=== PATIENT | female | born 1940 | race Caucasian/White ===

== ENCOUNTER 2017-09-09 11:16 | Emergency (ER) | payer MEDICARE, OTHER ==
[~2017-09-09] VITALS: Ht 167.6 cm; Wt 102.1 kg
[~2017-09-09 11:16] MED LIST: AMLODIPINE BES2.5 MG PO; ATORVASTATIN CA20 MG PO; CALCIUM 600 +1 EAC8 PO; GLUCOSAMINE &1 EAC1 PO; HYDROCHLOROTH12.5 M1 PO; JANTOVEN2.5 MG PO; LEVOTHYROXINE112 MCG PO; LOSARTAN POTAS100 MG PO; MELOXICAM7.5 MG PO; METFORMIN HCL500 MG PO; OMEPRAZOLE40 MG PO; PANTOPRAZOLE SO40 MG PO; PROTONIX40 M2; Z.0.CRESTOR10 MG PO; Z.0.ESTRADIOL1 MG PO; Z.0.VESICARE5 MG PO; Z.2.LOSARTAN-HCTZ1 E PO; [UNRECOGNIZED DRUG - OTHER] PO
[2017-09-09] MEDS ORDERED: ECOTRIN81 MG PO (11:36)
[2017-09-09] MEDS ORDERED: VITAMIN B-650 MG PO (11:36)
[2017-09-09] MEDS ORDERED: FOLIC ACID1 MG PO (11:36)
[2017-09-09 12:15] LABS: BASOPHILS % 0.5 % (0.0-1.0); EOSINOPHILS # (AUTO) 0.1 (0.0-0.4); EOSINOPHILS % 1.5 % (0.0-6.0); HEMATOCRIT 41.7 % (34.2-44.1); HEMOGLOBIN 14.4 g/dL (12.0-16.0); LYMPHOCYTES # (AUTO) 1.3 (1.0-3.2); LYMPHOCYTES % 20.1 % (18.0-39.1); MEAN CORPUSCULAR HEMOGLOBIN 31.4 pg (28-32); MEAN CORPUSCULAR HGB CONC 34.5 g/dL (31-35); MONOCYTES # (AUTO) 0.7 (0.2-0.8); MONOCYTES % 10.5 % (4.4-11.3); NEUTROPHILS # (AUTO) 4.4 (2.1-6.9); NEUTROPHILS % 67.1 % (38.7-80.0); PLATELET COUNT 286 x10e3/uL (140-360); RED BLOOD COUNT 4.58 x10e6/uL (3.6-5.1); RED CELL DISTRIBUTION WIDTH 12.4 % (11.7-14.4)
[2017-09-09 12:31] LABS: INR 0.97; PROTHROMBIN TIME 13.4 seconds (11.9-14.5)
[2017-09-09 12:32] LABS: PARTIAL THROMBOPLASTIN TIME 26.4 seconds (23.8-35.5)
[2017-09-09 12:40] LABS: ALBUMIN 3.8 g/dL (3.5-5.0); ANION GAP 12.7 mmol/L (8-16); CREATININE, SERUM 1.25 mg/dL (0.57-1.11); POTASSIUM 3.7 mmol/L (3.5-5.1)
[2017-09-09] MEDS ORDERED: SODIUM CHLORIDE 0.9% 1000ML 1,000 ML IV STA (12:46)
[2017-09-09 12:51] LABS: CREATINE KINASE MB 1.2 ng/mL (0.00-5.00); TROPONIN I 0.007 ng/mL (0-0.300)
[2017-09-09] MEDS ORDERED: IOPAMIDOL 370 MG/ML 200 ML INFUS..BTL INJ ONE (14:06)
[2017-09-09] MEDS ORDERED: SODIUM CHLORIDE 0.9% 50ML 50 ML ONE (14:06)
--- NOTE | 2017-09-09 14:30 | Diagnostic Imaging Report ---
PROCEDURE: CT scan of the chest WITH intravenous contrast, using PE protocol. TECHNIQUE: The chest was scanned utilizing a multidetector helical scanner from the lung apex through the level of the adrenal glands after the IV administration of 70 cc of Isovue 370 with special emphasis on the pulmonary arteries. Coronal and sagittal multiplanar reformations were obtained. COMPARISON: CT, CT ABDOMEN/PELVIS W, 11/30/2012, 19:59. CT, CT ABDOMEN/PELVIS W, 07/08/2015, 10:25. [facility], CT, CT CHEST W, 11/02/2015, 10:02. INDICATIONS: WEAKNESS, PULMONARY EMBOLISM FINDINGS: Lines/tubes: None. Lungs and Airways: No filling defects in the main, right or left pulmonary arteries to their segmental level to suggest pulmonary embolism. Unchanged atelectatic changes in the media of aspect of the right lower and left lower lobe secondary to large hiatal hernia (series 3, images 77-82), as well as associated multiple linear opacities in bilateral lower lobes and lingula, consistent with scarring. Stable 4 mm calcified granuloma in the left lower lobe (series 3, image 60). No nodules, masses, or consolidation. Pleura: No effusion, or pneumothorax. Heart and mediastinum: The thyroid is unremarkable. Stable mild cardiomegaly. No pericardial effusion. The aorta is non-aneurysmal. Main pulmonary artery is normal in size, measuring approximately 2.3 cm. Lymph nodes: No mediastinal, hilar, or axillary adenopathy. Abdomen: Limited contrast-enhanced views of the upper abdomen show no abnormality within the visualized spleen, pancreas, or kidneys. Stable 1.4 and 1.3 cm hypodense lesions in hepatic segment VII. This since 2012, which are presumed benign and likely represent small hemangiomas. Large hiatal hernia, which contains the stomach fundus and body. The adrenal glands are normal. Bones: No acute bony abnormalities. Degenerative disc changes in the thoracic spine. The IMPRESSION: 1. No CT evidence of pulmonary embolism. 2. Stable bilateral lower lobe atelectatic changes secondary to large hiatal hernia, containing the stomach fundus and body, and stable bilateral lower lobe linear scarring. Oscar Martines M.D. Dictated by: Oscar Martines M.D. on 09/09/2017 at 14:38 Electronically approved by: Oscar Martines M.D. on 09/09/2017 at 14:38
== END 2017-09-09 16:03 | disposition home or self-care (01) ==
LOC: ER 11:16
DX: R06.00 Dyspnea, unspecified (principal); I26.99 Other pulmonary embolism without acute cor pulmonale; I10 Essential (primary) hypertension; Z86.718 Personal history of other venous thrombosis and embolism
CPT/HCPCS: 36415; 71260; 80053; 82550; 82553; 84484; 85025; 85610; 85730; 93005; 99284; J7030; Q9967

== ENCOUNTER 2017-12-04 13:29 | Emergency (ER) | payer MEDICARE, OTHER ==
[~2017-12-04] VITALS: Ht 167.6 cm; Wt 102.1 kg
[~2017-12-04 13:29] MED LIST changes: +ECOTRIN81 MG PO; +FOLIC ACID1 MG PO; +VITAMIN B-650 MG PO
--- OUTSIDE RECORDS SUMMARY | 2017-12-04 13:34 | XMS REPORT ---
[facility] Address Unknown Phone Unavailable Care Team Providers Care [place] Attendant Name Role Phone MIGUEL PETERSON Unavailable Unavailable KUSH MARINO Unavailable Unavailable Problems This patient has no known problems. Allergies, Adverse Reactions, Alerts This patient has no known allergies or adverse reactions. Medications This patient has no known medications. Results Test Description Test Time Test Comments Text Results Atomic Results Result Comments CT CHEST W [place] [address] Patient Name: MANAS VANEGAS MR #: [id number] : 1940 Age/Sex: 76/F Req #: [id number] Adm Physician: Ordered by: MIGUEL PETERSON MD Report #: [id number] Location: ER Room/Bed: Procedure: [id number] CT/CT CHEST W Exam Date: 09/09/17 Exam Time: 1345 REPORT STATUS: Signed PROCEDURE: CT scan of the chest WITH intravenous contrast, using PE protocol. TECHNIQUE: The chest was scanned utilizing a multidetector helical scanner from the lung apex through the level of the adrenal glands after the IV administration of 70 cc of Isovue 370 with special emphasis on the pulmonary arteries. Coronal and sagittal multiplanar reformations were obtained. COMPARISON: CT, CT ABDOMEN/PELVIS W, 11/30/2012, 19:59. CT, CT ABDOMEN/PELVIS W, 07/08/2015, 10: 25. Patients [facility], CT, CT CHEST W, 11/02/2015, 10:02. INDICATIONS: WEAKNESS, PULMONARY EMBOLISM FINDINGS: Lines/tubes: None. Lungs and Airways: No filling defects in the main, right or left pulmonary arteries to their segmental level to suggest pulmonary embolism. Unchanged atelectatic changes in the media of aspect of the right lower and left lower lobe secondary to large hiatal hernia (series 3, images 77-82), as well as associated multiple linear opacities in bilateral lower lobes and lingula, consistent with scarring. Stable 4 mm calcified granuloma in the left lower lobe (series 3, image 60). No nodules, masses, or consolidation. Pleura: No effusion, or pneumothorax. Heart and mediastinum: The thyroid is unremarkable. Stable mild cardiomegaly. No pericardial effusion. The aorta is non-aneurysmal. Main pulmonary artery is normal in size, measuring approximately 2.3 cm. Lymph nodes: No mediastinal, hilar, or axillary adenopathy. Abdomen: Limited contrast- enhanced views of the upper abdomen show no abnormality within the visualized spleen, pancreas, or kidneys. Stable 1.4 and 1.3 cm hypodense lesions in hepatic segment VII. This since 2013, which are presumed benign and likely represent small hemangiomas. Large hiatal hernia, which contains the stomach fundus and body. The adrenal glands are normal. Bones: No acute bony abnormalities. Degenerative disc changes in the thoracic spine. The IMPRESSION: 1. No CT evidence of pulmonary embolism. 2. Stable bilateral lower lobe atelectatic changes secondary to large hiatal hernia, containing the stomach fundus and body, and stable bilateral lower lobe linear scarring. Katina Martines M.D. Dictated by : Katina Martines M.D. on 09/09/2017 at 14:38 Electronically approved by: Katina Martines M.D. on 09/09/2017 at 14:38 Dictated By: KATINA MARTINES MD 1438 Transcribed By: KAREN on 09/09/17 1438 COPY TO: MIGUEL PETERSON MD MRI SPINE LUMBAR WO [place] [address] Patient Name: MANAS VANEGAS MR #: [id number] : 1940 Age/Sex: 76/F Req # : [id number] [facility] Physician: Ordered by: KUSH MARINO MD Report #: [id number] Location: MRI Room/Bed: Procedure: [id number] MRI/MRI SPINE LUMBAR WO Exam Date: 07/07/17 Exam Time: 1720 REPORT STATUS: Signed Exam: Lumbar spine MRI without IV contrast History: Back and leg pain. Comparison studies: Included lumbar spine from abdomen pelvis CT of 06/25/2016. Technique: Sagittal and axial T2 , sagittal T1 and IR, axial spin density oblique. Intravenous contrast: None Findings: Number of lumbar vertebral bodies: 5. Alignment: Normal lordosis. No scoliosis. Soft tissues: No T2 hyperintense inflammatory changes. Paraspinal muscles: Mild to moderate symmetric atrophy. Lower thoracic cord: Normal in signal and morphology. The tip of the conus is at T12-L1. Cauda equina: No masses. No arachnoiditis. Vertebrae: Incidental few scattered T1 hyperintense vertebral body hemangiomas. No acute compression fracture, infection or other neoplasm. Chronic superior L5 endplate compression fracture with up to 40% height loss centrally. No retropulsion. Degenerative changes: L1-L2: Mild facet arthrosis. Patent canal and foramina. L2-L3: Mildly degenerated disc with mild loss of disc height and loss of T2 disc signal. Minimal grade 1 degenerative anterolisthesis with associated uncovered disc/disc bulge, thickened ligamenta flava and facet arthrosis result in mild canal stenosis. No significant foraminal stenosis. L3-L4: Mild loss of T2 disc signal. Minimal grade 1 anterolisthesis of L3 on L4 with associated uncovered disc/ disc bulge, thickened ligamentum flavum and moderate facet arthrosis result in moderate canal stenosis and mild bilateral foraminal stenosis. L4-L5: Loss of T2 disc signal. Symmetric disc bulge with small left foraminal annular fissure, thickened ligamenta flava and moderate facet arthrosis with mild canal stenosis and mild bilateral foraminal stenosis L5-S1: Loss of T2 disc signal. Bilateral facet arthrosis without significant canal or foraminal stenosis. IMPRESSION: 1. Chronic superior L5 endplate compression fracture. 2. Multilevel degenerative changes most notable for moderate canal stenosis at L3-L4, mild canal stenosis at L2-L3 and L4-L5 and facet arthrosis from L1 to S1. No nerve root impingement. Signed by: Dr. Arnel Schmitt M.D. on 07/08/2017 10:53 AM Dictated By: ARNEL SCHMITT MD 1053 Transcribed By: RICCARDO on 07/08/171052 COPY TO: KUSH MARINO MD
[2017-12-04] MEDS ORDERED: MORPHINE SULFATE 2 MG/ML SYR IV STA (14:45)
[2017-12-04] MEDS ORDERED: ONDANSETRON HCL INJ 2 MG/ML VIAL IV STA (14:45)
[2017-12-04] MEDS ORDERED: NIFEDIPINE 10 MG CAP PO STA (14:45)
[2017-12-04 14:58] LABS: BASOPHILS % 0.5 % (0.0-1.0); EOSINOPHILS % 0.5 % (0.0-6.0); HEMATOCRIT 42.3 % (34.2-44.1); HEMOGLOBIN 14.8 g/dL (12.0-16.0); LYMPHOCYTES # (AUTO) 0.7 (1.0-3.2); LYMPHOCYTES % 11.6 % (18.0-39.1); MEAN CORPUSCULAR HEMOGLOBIN 31.1 pg (28-32); MEAN CORPUSCULAR VOLUME 88.9 fL (81-99); MONOCYTES # (AUTO) 0.3 (0.2-0.8); MONOCYTES % 4.3 % (4.4-11.3); NEUTROPHILS # (AUTO) 4.8 (2.1-6.9); NEUTROPHILS % 82.6 % (38.7-80.0); PLATELET COUNT 192 x10e3/uL (140-360); RED BLOOD COUNT 4.76 x10e6/uL (3.6-5.1); RED CELL DISTRIBUTION WIDTH 11.9 % (11.7-14.4)
[2017-12-04 15:09] LABS: ANION GAP 16.4 mmol/L (8-16); BLOOD UREA NITROGEN 14 mg/dL (7-26); BUN/CREATININE RATIO 15 (6-25); CALCIUM 9.8 mg/dL (8.4-10.2); CARBON DIOXIDE 27 mmol/L (22-29); CHLORIDE 99 mmol/L (98-107); CREATINE KINASE 62 IU/L (29-168); CREATININE, SERUM 0.91 mg/dL (0.57-1.11); EST GLOMERULAR FILTRATION RATE 60 ML/MIN (60-); GLUCOSE 139 mg/dL (74-118); POTASSIUM 4.4 mmol/L (3.5-5.1); SODIUM 138 mmol/L (136-145)
--- NOTE | 2017-12-04 16:31 | Diagnostic Imaging Report ---
History:Headaches Comparison studies:None Technique: Axial images were obtained from the skull base to the vertex. Coronal and sagittal images reconstructed from the axial data. Intravenous contrast: None Findings: Scalp/skull: No abnormalities. Extra-axial spaces: No masses. No fluid collections. Brain sulci: Mildly prominent. Ventricles: Mild compensatory dilatation. No hydrocephalus. Parenchyma: Few hypodensities in the supratentorial white matter are small vessel ischemic changes. No masses, hemorrhage, acute or chronic cortical vascular insults. Sellar/suprasellar region: No abnormalities. Craniocervical junction: Patent foramen magnum. No Chiari one malformation. Incidental findings: Atherosclerotic calcifications in the carotid siphons . Impression: No acute abnormalities. Chronic findings: 1. Mild generalized volume loss. 2. Mild supratentorial white matter small vessel ischemic changes. Signed by: DR Seth Olson M.D. on 12/04/2017 4:28 PM
--- NOTE | 2017-12-04 16:36 | Diagnostic Imaging Report ---
EXAMINATION: CHEST SINGLE (PORTABLE) 12/04/2017 2:45 PM COMPARISON: 11/02/2015. INDICATION: Chest pain. DISCUSSION: LINES: None. LUNGS: Bibasilar subsegmental. Mild prominence of the pulmonary vasculature bilaterally. PLEURA: No pleural effusion or pneumothorax. HEART AND MEDIASTINUM: The cardiac silhouette is enlarged. BONES AND SOFT TISSUES: No acute osseous lesion. Large hiatal hernia. IMPRESSION: 1. Bibasilar subsegmental atelectasis. 2. Large hiatal hernia. Signed by: Dr. Shannon Marx M.D. on 12/04/2017 4:32 PM
== END 2017-12-04 17:29 | disposition home or self-care (01) ==
LOC: ER 13:29
DX: R51 Headache (principal); I10 Essential (primary) hypertension
CPT/HCPCS: 36415; 70450; 71045; 80048; 82550; 82553; 84484; 85025; 93005; 99284; J2270; J2405

== ENCOUNTER → 2019-01-18 | Outpatient (CLI) | payer MEDICARE, OTHER ==
--- NOTE | 2019-01-18 11:21 | Diagnostic Imaging Report ---
EXAMINATION: PA and lateral views of the chest. INDICATION: Shortness of breath COMPARISON: Chest radiograph 06/19/2018. DISCUSSION: The lungs are well-inflated. No evidence of pneumonia or pulmonary edema. No evidence of pleural effusion or pneumothorax. Mild patchy left basilar opacity, likely atelectasis. Stable cardiomediastinal contour with large hiatal hernia. No acute osseous abnormality. IMPRESSION: No acute radiographic abnormality. Large hiatal hernia. Signed by: Dr. Emiliano Osman MD on 01/18/2019 11:18 AM
== END ==
LOC: RAD 10:50
DX: R06.02 Shortness of breath (principal)
CPT/HCPCS: 71046

== ENCOUNTER 2019-02-06 03:34 | Emergency (ER) | payer MEDICARE, OTHER ==
[~2019-02-06] VITALS: Ht 167.6 cm; Wt 102.1 kg
--- OUTSIDE RECORDS SUMMARY | 2019-02-06 03:38 | XMS REPORT | Summary of Care ---
Author Author [facility] Address Unknown Phone Unavailable Encounter [facility] Encntr_mat(FIN) [id number] Date(s): 01/10/17 - 02/08/17 [facility] Final: Stiffness of left hip, not elsewhere classified Final: Difficulty in walking, not elsewhere classified Discharge Disposition: Home or Self Care Attending Physician: Giuseppe Clemente MD Vital Signs No data available for this section Problem List Condition Effective Dates Status Health Status Informant DM (diabetes Active mellitus)(Confirmed) HTN Active (hypertension)(Confi rmed) Hypothyroid(Confirme Active d) Allergies, Adverse Reactions, Alerts Substance Reaction Severity Status NKDA Active Medications No data available for this section Results No data available for this section Immunizations Given and Recorded Vaccine Date Status Refusal Reason diphtheria/pertussis, acel/tetanus adult 01/26/14 Given Procedures Procedure Date Related Diagnosis Body Site section Cholecystectomy Hysterectomy Thyroidectomy Social History No data available for this section Assessment and Plan No data available for this section
--- OUTSIDE RECORDS SUMMARY | 2019-02-06 03:38 | XMS REPORT | Summary of Care ---
Author Author [facility] Address Unknown Phone Unavailable Encounter [facility] Casey(FIN) [id number] Date(s): 09/30/17 - 10/29/17 [facility] Encounter Diagnosis Pain in right knee (Final) - 11/03/17 Stiffness of right knee, not elsewhere classified (Final) - Muscle weakness (generalized) (Final) - Anterior soft tissue impingement (Final) - Other lack of coordination (Final) - Other abnormalities of gait and mobility (Final) - Presence of right artificial knee joint (Final) - Aftercare following joint replacement surgery (Final) - Other abnormalities of gait and mobility (Final) - Unsteadiness on feet (Final) - Discharge Disposition: Home or Self Care Attending Physician: Giuseppe Clemente MD Vital Signs No data available for this section Problem List Condition Effective Dates Status Health Status Informant DM (diabetes Active mellitus)(Confirmed) HTN Active (hypertension)(Confi rmed) Hypothyroid(Confirme Active d) Osteoarthritis(Confi Active rmed)1 1right knee Allergies, Adverse Reactions, Alerts Substance Reaction Severity Status NKDA Active Medications No data available for this section Results No data available for this section Immunizations Given and Recorded Vaccine Date Status Refusal Reason diphtheria/pertussis, acel/tetanus adult 01/26/14 Given Procedures Procedure Date Related Diagnosis Body Site Status Cataract surgery1 Completed section Completed Cholecystectomy Completed Hysterectomy Completed Thyroidectomy Completed 1both eyes 2013 Social History Social History Type Response Smoking Status Never smoker; Exposure to Tobacco Smoke None; Cigarette Smoking Last 365 Days No; Reg Smoking Cessation Counseling No entered on: 08/25/17 Assessment and Plan No data available for this section
--- OUTSIDE RECORDS SUMMARY | 2019-02-06 03:38 | XMS REPORT | Summary of Care ---
Author Author [facility] Organization [facility] Address Unknown Phone Unavailable Encounter BENJI Peña(FIN) [id number] Date(s): 08/09/17 - 08/09/17 [facility] Outpatient Imaging [address] [phone] Discharge Disposition: Home or Self Care Attending [...] Procedures Procedure Date Related Diagnosis Body Site Cataract surgery1 section Cholecystectomy Hysterectomy Thyroidectomy 1both eyes 2013 Social History Social History Type Response Smoking Status Never smoker; Exposure to Tobacco Smoke None; Cigarette Smoking Last 365 Days No; Reg Smoking Cessation Counseling No Assessment and Plan No data available for this section
--- OUTSIDE RECORDS SUMMARY | 2019-02-06 03:38 | XMS REPORT | Continuity of Care Document ---
Author Author Frank nadine [facility] Interface Address Unknown Phone Unavailable Problems Problem Status Onset Date Classification Date Reported Comments Source Pain in right knee 01/07/2018 04/07/2018 [facility] RT KNEE Active 09/26/2017 [facility] RT KNEE M17.11 OA, Z96.651 RT. KNEE REPL Active 09/21/2017 [facility] RIGHT KNEE PARTIAL REPLACEMENT Active 08/25/2017 [facility] M17.11, M25.561, [id number] RIGHT KNEE Active 07/22/2017 [facility] LEFT HIP PAIN Active 12/13/2016 [facility] BILATERAL KNEE Active 12/13/2016 [facility] Final: Muscle weakness 06/13/2016 [facility] Final: Stiffness of unspecified knee, not elsewhere classified 06/13/2016 [facility] Final: Difficulty in walking, not elsewhere classified 06/13/2016 [facility] DM (<span ID="[id number]">Confirmed</span>) Active Problem 04/07/2018 [facility] HTN (<span ID="[id number]">Confirmed</span>) Active Problem 04/07/2018 [facility] Hypothyroid Active Problem 04/07/2018 [facility] Other abnormalities of gait and mobility 04/07/2018 [facility] Stiffness of right knee, not elsewhere classified 04/07/2018 [facility] Weakness 04/07/2018 [facility] Unsteadiness on feet 04/07/2018 [facility] Osteoarthritis<sup>1</sup> Active Problem 04/07/2018 right knee [facility] Final: Stiffness of left hip, not elsewhere classified 02/11/2017 [facility] Final: Difficulty in walking, not elsewhere classified 02/11/2017 [facility] Muscle weakness 02/04/2018 [facility] Anterior soft tissue impingement 02/04/2018 [facility] Other lack of coordination 02/04/2018 [facility] Presence of right artificial knee joint 02/04/2018 [facility] Aftercare following joint replacement surgery 02/04/2018 [facility] KAILASH KNEE Active [facility] KAILASH KNEE PAIN Active [facility] UNILATERAL PRIMARY OSTEOARTHRITIS, LEFT Active [facility] UNILATERAL PRIMARY OSTEOARTHRITIS, RIGHT Active [facility] PAIN IN UNSPECIFIED KNEE Active [facility] MUSCLE WEAKNESS (GENERALIZED) Active [facility] STIFFNESS OF UNSPECIFIED KNEE, NOT ELSEW Active [facility] DIFFICULTY IN WALKING, NOT ELSEWHERE CLA Active [facility] UNILATERAL PRIMARY OSTEOARTHRITIS, LEFT Active [facility] PAIN IN LEFT HIP Active [facility] STIFFNESS OF LEFT HIP, NOT ELSEWHERE CLA Active [facility] PAIN IN RIGHT KNEE Active [facility] STIFFNESS OF RIGHT KNEE, NOT ELSEWHERE C Active [facility] UNSTEADINESS ON FEET Active [facility] OTHER ABNORMALITIES OF GAIT AND MOBILITY Active [facility] WEAKNESS Active [facility] Medications Medication Details Route Status Patient Instructions Ordering Provider Order Date Source Ketorolac 15 mg, Route: IVP, Q6H, Dosing Weight 102.727, kg, Start date: 08/25/17 12:00:00 SKID WORKER, Duration: 6 doses or times, Stop date: 08/26/17 18:00:00 SKID WORKER Inactive 08/25/2017 [facility] Vancomycin 1,000 mg, Route: IVPB, Drug form: INJ, Q12H, Dosing Weight 102.727, kg, Time Critical Medication, Start date: 08/25/17 9:00:00 SKID WORKER, Duration: 1 doses or times, Stop date: 08/25/17 9:00:00 SKID WORKER, [facility] to adjust dose for renal function, ABX Indication... Inactive 08/25/2017 [facility] propofol (ANES) Route: IV, Drug form: INJ, ONCE, Stop date: 08/25/17 8:04:00 SKID WORKER Inactive 08/25/2017 [facility] ondansetron (ANES) Route: IV, Drug form: INJ, ONCE, Stop date: 08/25/17 8:04:00 SKID WORKER Inactive 08/25/2017 [facility] ePHEDrine (ANES) Route: IV, Drug form: INJ, ONCE, Stop date: 08/25/17 8:04:00 SKID WORKER Inactive 08/25/2017 [facility] Cefazolin 1 gm, Route: IVPB, Drug form: INJ, Q8H, Dosing Weight 102.727, kg, Start date: 08/25/17 8:00:00 SKID WORKER, Duration: 1 doses or times, Stop date: 08/25/17 8:00:00 SKID WORKER, ABX Indication: Surgical Prophylaxis Inactive 08/25/2017 [facility] propofol (ANES) 10 mg Route: IV, Drug form: INJ, Start date: 08/25/17 7:47:00 SKID WORKER, Stop date: 08/25/17 8:47:00 SKID WORKER Inactive 08/25/2017 [facility] famotidine (ANES) Route: IV, Drug form: INJ, ONCE, Stop date: 08/25/17 7:39:00 SKID WORKER Inactive 08/25/2017 [facility] lidocaine (ANES) Route: IV, Drug form: INJ, ONCE, Stop date: 08/25/17 7:34:00 SKID WORKER Inactive 08/25/2017 [facility] fentaNYL (ANES) Route: IV, Drug form: INJ, ONCE, Stop date: 08/25/17 7:34:00 SKID WORKER Inactive 08/25/2017 [facility] midazolam (ANES) Route: IV, Drug form: SOLN, ONCE, Stop date: 08/25/17 7:34:00 SKID WORKER Inactive 08/25/2017 [facility] propofol (ANES) Route: IV, Drug form: INJ, ONCE, Stop date: 08/25/17 7:34:00 SKID WORKER Inactive 08/25/2017 [facility] ceFAZolin (ANES) Route: IV, Drug form: INJ, ONCE, Stop date: 08/25/17 7:29:00 SKID WORKER Inactive 08/25/2017 [facility] dexamethasone (ANES) Route: IV, Drug form: INJ, ONCE, Stop date: 08/25/17 7:29:00 SKID WORKER Inactive 08/25/2017 [facility] acetaminophen (ANES) Route: IV, Drug form: INJ, ONCE, Stop date: 08/25/17 7:29:00 SKID WORKER Inactive 08/25/2017 [facility] Ondansetron 4 mg, Route: IVP, ONCE, Dosing Weight 102.727, kg, PRN Nausea & Vomiting, Start date: 08/25/17 7:07:00 SKID WORKER Inactive 08/25/2017 [facility] Promethazine 6.25 mg, Route: IVPB, ONCE, Dosing Weight 102.727, kg, PRN Nausea & Vomiting, Start date: 08/25/17 7:07:00 SKID WORKER Inactive 08/25/2017 [facility] Fentanyl 25 microgram, Route: IVP, Q5Min, Dosing Weight 102.727, kg, PRN Pain Score 4-6, Priority: Routine, Start date: 08/25/17 7:07:00 SKID WORKER, Duration: 4 doses or times, Stop date: Limited # of times Inactive 08/25/2017 [facility] Calcium Chloride 0.0014 MEQ/ML / Potassium Chloride 0.004 MEQ/ML / Sodium Chloride 0.103 MEQ/ML / Sodium Lactate 0.028 MEQ/ML Injectable Solution 1,000 mL, Rate: 125 ml/hr, Infuse over: 8 hr, Route: IV, Dosing Weight 102.727 kg, Total Volume: 1,000, Start date: 08/25/17 7:07:00 SKID WORKER, Duration: 30 day, Stop date: 09/24/17 7:06:00 SKID WORKER, 2.25, m2 Inactive 08/25/2017 [facility] Hydromorphone 0.5 mg, Route: IVP, Q5Min, Dosing Weight 102.727, kg, PRN Pain Score 7-10, Start date: 08/25/17 7:07:00 SKID WORKER, Duration: 4 doses or times, Stop date: Limited # of times Inactive 08/25/2017 [facility] Flumazenil 0.2 mg, Route: IVP, PRN, Dosing Weight 102.727, kg, PRN Benzodiazepine Reversal, Initial dose, Start date: 08/25/17 7:07:00 SKID WORKER, Duration: 30 day, Stop date: 09/24/17 7:06:00 SKID WORKER Inactive 08/25/2017 [facility] Naloxone 0.4 mg, Route: IVP, Q2MIN, Dosing Weight 102.727, kg, PRN Narcotic Reversal, Start date: 08/25/17 7:07:00 SKID WORKER, Duration: 8 doses or times, Stop date: Limited # of times Inactive 08/25/2017 [facility] Metoprolol 1 mg, Route: IVP, Q5Min, Dosing Weight 102.727, kg, PRN Other -See Comment, Start date: 08/25/17 7:07:00 SKID WORKER, Duration: 5 doses or times, Stop date: Limited # of times Inactive 08/25/2017 [facility] Hydralazine 10 mg, Route: IVP, Q20Min, Dosing Weight 102.727, kg, PRN Elevated BP, Start date: 08/25/17 7:07:00 SKID WORKER, Duration: 2 doses or times, Stop date: Limited # of times Inactive 08/25/2017 [facility] Clonidine Hydrochloride 0.1 MG Oral Tablet 0.1 mg, 1 tab, Route: PO, Drug form: TAB, QID, Dosing Weight 102.727, kg, PRN Hypertension, Start date: 08/25/17 6:46:00 SKID WORKER, Duration: 30 day, Stop date: 09/24/17 6:45:00 CSTNotes: (Same As: Catapres) Inactive 08/25/2017 [facility] Diphenhydramine 12.5 mg, 5 mL, Route: PO, Drug form: LIQ, Q6H, Dosing Weight 102.727, kg, PRN Itching, Start date: 08/25/17 6:46:00 SKID WORKER, Duration: 30 day, Stop date: 09/24/17 6:45:00 CSTNotes: (Same as: Benadryl) Inactive 08/25/2017 [facility] Hydromorphone 0.3 mg, Route: IVP, Q3H, Dosing Weight 102.727, kg, PRN Pain Score 4-6, Start date: 08/25/17 6:46:00 SKID WORKER, Duration: 30 day, Stop date: 09/24/17 6:45:00 SKID WORKER Inactive 08/25/2017 [facility] Ondansetron 4 mg, 2 mL, Route: IVP, Drug form: INJ, Q6H, Dosing Weight 102.727, kg, PRN Nausea & Vomiting, Start date: 08/25/17 6:46:00 SKID WORKER, Duration: 30 day, Stop date: 09/24/17 6:45:00 CSTNotes: (Same as: Zofran) MEDICATION WASTE Product Size: 4 mg Product Wasted: ___ mg Inactive 08/25/2017 [facility] Promethazine 12.5 mg, 50 mL, Route: IVPB, Drug form: SOLN, Q4H, Dosing Weight 102.727, kg, PRN Nausea & Vomiting, Start date: 08/25/17 6:46:00 SKID WORKER, Duration: 30 day, Stop date: 09/24/17 6:45:00 SKID WORKER Inactive 08/25/2017 [facility] Lactated Ringers IV 1,000 mL 1,000 mL, Rate: 125 ml/hr, Infuse over: 8 hr, Route: IV, Dosing Weight 102.727 kg, Total Volume: 1,000, Start date: 08/25/17 6:46:00 SKID WORKER, Duration: 30 day, Stop date: 09/24/17 6:45:00 SKID WORKER, 2.25, m2 Inactive 08/25/2017 [facility] Acetaminophen 325 MG / Hydrocodone Bitartrate 10 MG Oral Tablet 1 tab, Route: PO, Drug Form: TAB, Dosing Weight 102.727, kg, Q4H, PRN Pain Score 4-6, Start date: 08/25/17 6:46:00 SKID WORKER, Duration: 30 day, Stop date: 09/24/17 6:45:00 CSTNotes: Do not exceed 4gm/day of acetaminophen. (Same as: [place] 325/10) Inactive 08/25/2017 [facility] Lactated Ringers Injection IV (ANES) 1000 mL Route: IV, Total Volume: 1,000, Start date: 08/25/17 6:30:00 SKID WORKER, Stop date: 08/25/17 7:30:00 SKID WORKER Inactive 08/25/2017 [facility] scopolamine 1 patch, Route: TOP, Drug form: ERFILM, ONCALL, Start date: 08/25/17 6:00:00 SKID WORKER, Duration: 1 doses or times, Stop date: 08/25/17 23:00:00 CSTNotes: Change patch every 72 hours (Same as: Transderm- Scop) Inactive 08/25/2017 [facility] dexamethasone 4 mg, 1 mL, Route: IV, Drug form: INJ, ONCALL, Start date: 08/25/17 6:00:00 SKID WORKER, Duration: 1 doses or times, Stop date: 08/25/17 23:00:00 CSTNotes: Concentration: 4mg/ml Inactive 08/25/2017 [facility] Zofran 4 mg, 1 tab, Route: PO, Drug form: TAB, ONCALL, Start date: 08/25/17 6:00:00 SKID WORKER, Duration: 1 doses or times, Stop date: 08/25/17 23:00:00 CSTNotes: (Same as: Zofran) Inactive 08/25/2017 [facility] Ofirmev 1,000 mg, 100 mL, Route: IV, Drug form: INJ, ONCALL, Start date: 08/25/17 6:00:00 SKID WORKER, Duration: 1 doses or times, Stop date: 08/25/17 23:00:00 CSTNotes: Infuse over 15 minutes Do not exceed 4gm/day of acetaminophen MEDICATION WASTE Product Size: 1000 mg Product Wasted: ___ mg Inactive 08/25/2017 [facility] CeleBREX 400 mg, 2 cap, Route: PO, Drug form: CAP, ONCALL, Start date: 08/25/17 6:00:00 SKID WORKER, Duration: 1 doses or times, Stop date: 08/25/17 23:00:00 CSTNotes: NSAID. Please check indication. Not for seizure. (Same As: CeleBREX) Inactive 08/25/2017 [facility] ceFAZolin + sterile water 20 mL 2 gm, Route: IV, ONCALL, Start date: 08/25/17 6:00:00 SKID WORKER, Duration: 1 doses or times, Stop date: 08/25/17 23:00:00 SKID WORKER, ABX Indication: Surgical ProphylaxisNotes: (Same As: Ancef, Kefzol) MEDICATION WASTE Product Size: 1000 mg Product Wasted: ___ mg Inactive 08/25/2017 [facility] levothyroxine 112 mcg (0.112 mg) oral tablet 112 microgram=1 tab, PO, Daily, 0 Refill(s) Active 08/09/2017 [facility] Folic Acid 1 MG Oral Tablet 1 mg=1 tab, PO, Daily, 0 Refill(s) Active 08/09/2017 [facility] atorvastatin 20 mg oral tablet 20 mg=1 tab, PO, Daily, 0 Refill(s) Active 08/09/2017 [facility] aspirin 81 mg tablet, enteric coated 81 mg=1 tab, PO, Daily, # 90 tab, 3 Refill(s) No Longer Active 08/09/2017 [facility] PARoxetine 20 mg oral tablet 20 mg=1 tab, PO, Daily, 0 Refill(s) Active 08/09/2017 [facility] omeprazole 40 mg oral delayed release capsule 40 mg=1 cap, PO, Daily, 0 Refill(s) Active 08/09/2017 [facility] losartan 50 mg oral tablet 50 mg=1 tab, PO, Daily, 0 Refill(s) Active 08/09/2017 [facility] Allergies, Adverse Reactions, Alerts Substance Category Reaction Severity Reaction type Status Date Reported Comments Source Immunizations Immunization Date Given Site Status Last Updated Comments Source diphtheria/pertussis, acel/tetanus adult 01/26/2014 Right Deltoid completed [facility] Results Order Name Results Value Reference Range Date Interpretation Comments Source BLOOD BANK RESULTS Antibody Scrn Negative (08/25/17 4:59 AM) 08/25/2017 [facility] BLOOD BANK RESULTS ABO/Rh A POS 08/25/2017 [facility] Knee 1-2 Views unilateral DX Knee 1-2 Views unilateral DX EXAMINATION: Right knee AP and lateral HISTORY: Arthritis - post op; right knee arthritis FINDINGS: Frontal and lateral portable views of the right knee are performed and compared to CT dated 08/09/2017. There has been interval placement of a medial compartment, unicompartmental right knee arthroplasty which is in near anatomic alignment. There is no periprosthetic fracture. Intra-articular and soft tissue gas is in keeping with the patient's postoperative status. IMPRESSION: 1. New medial compartment, unicompartmental right knee arthroplasty in near anatomic alignment with postoperative changes. 08/25/2017 - - Read by: Janes Diaz MD Dictated Date/time: 08/25/17 10:19 Electronically Signed by: Janes Diaz MD 08/25/17 10:21 FINAL REPORT [facility] BACTERIAL - SEROLOGY MRSA by PCR Negative (08/09/17 8:43 AM) 08/09/2017 [facility] CHEM PANEL Albumin Lvl 3.3 g/dL 3.5 - 5.0 08/09/2017 [facility] ELECTROLYTES CO2 27 meq/L 24 - 32 08/09/2017 [facility] ELECTROLYTES Calcium Lvl 8.7 mg/dL 8.5 - 10.5 08/09/2017 [facility] ELECTROLYTES Potassium Lvl 4.2 meq/L 3.5 - 5.1 08/09/2017 [facility] ELECTROLYTES Chloride Lvl 109 meq/L 95 - 109 08/09/2017 [facility] ELECTROLYTES Sodium Lvl 143 meq/L 135 - 145 08/09/2017 [facility] ELECTROLYTES Glucose Lvl 109 mg/dL 70 - 99 08/09/2017 [facility] ELECTROLYTES eGFR 43 mL/min/1.73m2 08/09/2017 Result Comment: The eGFR is calculated using the CKD-EPI formula. In most young, healthy individuals the eGFR will be >90 mL/min/1.73m2. The eGFR declines with age. An eGFR of 60-89 may be normal in some populations, particularly the elderly, for whom the CKD-EPI formula has not been extensively validated. Use of the eGFR is not recommended in the following populations: Individuals with unstable creatinine concentrations, including patients and those with serious co-morbid conditions. Patients with extremes in muscle mass or diet. The data above are obtained from the National Kidney Disease Education Program (NKDEP) which additionally recommends that when the eGFR is used in patients with extremes of body mass index for purposes of drug dosing, the eGFR should be multiplied by the estimated BMI. [facility] ELECTROLYTES Creatinine Lvl 1.20 mg/dL 0.50 - 1.40 08/09/2017 [facility] ELECTROLYTES BUN 14 mg/dL 7 - 22 08/09/2017 [facility] ELECTROLYTES AGAP 11.2 meq/L 10.0 - 20.0 08/09/2017 [facility] HEMATOLOGY MCV 92.7 fL 80.0 - 98.0 08/09/2017 [facility] HEMATOLOGY MCHC 34.7 g/dL 32.0 - 36.0 08/09/2017 [facility] HEMATOLOGY RDW 13.0 % 11.5 - 14.5 08/09/2017 [facility] HEMATOLOGY Platelet 178 K/CMM 133 - 450 08/09/2017 [facility] HEMATOLOGY MPV 7.8 fL 7.4 - 10.4 08/09/2017 [facility] HEMATOLOGY Hct 39.2 % 36.0 - 48.0 08/09/2017 [facility] HEMATOLOGY MCH 32.2 pg 27.0 - 31.0 08/09/2017 [facility] HEMATOLOGY WBC 7.7 K/CMM 3.7 - 10.4 08/09/2017 [facility] HEMATOLOGY RBC 4.23 M/CMM 4.20 - 5.40 08/09/2017 [facility] HEMATOLOGY Hgb 13.6 g/dL 12.0 - 16.0 08/09/2017 [facility] HEMATOLOGY Basophils 0.8 % 0.0 - 1.0 08/09/2017 [facility] HEMATOLOGY Monocytes 8.3 % 2.0 - 12.0 08/09/2017 [facility] HEMATOLOGY Segs 69.8 % 45.0 - 75.0 08/09/2017 [facility] HEMATOLOGY Eosinophils 2.9 % 0.0 - 4.0 08/09/2017 [facility] HEMATOLOGY Lymphocytes 18.2 % 20.0 - 40.0 08/09/2017 [facility] HEMATOLOGY Basophils # 0.1 K/CMM 0.0 - 0.2 08/09/2017 [facility] HEMATOLOGY Eosinophils # 0.2 K/CMM 0.0 - 0.5 08/09/2017 [facility] HEMATOLOGY Monocytes # 0.6 K/CMM 0.0 - 0.8 08/09/2017 [facility] HEMATOLOGY Segs-Bands # 5.4 K/CMM 1.5 - 8.1 08/09/2017 [facility] HEMATOLOGY Lymphocytes # 1.4 K/CMM 1.0 - 5.5 08/09/2017 [facility] IMMUNOLOGY HIV Ag/Ab 4th Gen Negative *NA* (08/09/17 8:43 AM) Negative 08/09/2017 [facility] IMMUNOLOGY Hep C Ab Negative *NA* (08/09/17 8:43 AM) 08/09/2017 [facility] Vital Signs Vital Sign Value Date Comments Source Systolic (mm Hg) 121 08/25/2017 [facility] Diastolic (mm Hg) 84 08/25/2017 [facility] Respitory Rate 16 08/25/2017 [facility] Respitory Rate 13 08/25/2017 [facility] Systolic (mm Hg) 151 08/25/2017 [facility] Diastolic (mm Hg) 132 08/25/2017 [facility] Respitory Rate 12 08/25/2017 [facility] Systolic (mm Hg) 139 08/25/2017 [facility] Diastolic (mm Hg) 100 08/25/2017 [facility] Heart Rate 84 08/25/2017 [facility] BMI Calculated 34.43 08/09/2017 [facility] Weight 102.727 08/09/2017 [facility] Height 172.72 cm 08/09/2017 [facility] Encounters Location Location Details Encounter Type Encounter Number Reason For Visit Attending Provider ADM Date DC Date Status Source [facility] [id number] Giuseppe Freedhand 05/12/2016 06/11/2016 [facility] [id number] Giuseppe Freedhand 06/22/2016 07/22/2016 [facility] [id number] Giuseppe Freedhand 01/10/2017 02/09/2017 [facility] [id number] Giuseppe Freedhand 02/10/2017 03/12/2017 [facility] Outpatient Imaging [facility] Out[facility] Di[facility] [id number] Giuseppe Freedhand 08/09/2017 08/10/2017 [facility] [id number] Giuseppe Freedhand 08/25/2017 08/25/2017 [facility] [id number] Giuseppe Freedhand 09/30/2017 10/30/2017 [facility] [id number] Giuseppe Freedhand 11/01/2017 12/01/2017 [facility] [id number] Giuseppe Freedhand 12/01/2017 12/31/2017 [facility] Procedures Procedure Code Date Perfomer Comments Source section [id number] [facility] Cholecystectomy [id number] [facility] Hysterectomy [id number] [facility] Thyroidectomy [id number] [facility] Cataract surgery<sup>1</sup> [id number] both eyes 2013 [facility] Cataract surgery<sup>1</sup> [id number] both eyes 2013 [facility] section [id number] [facility] Cholecystectomy [id number] [facility] Hysterectomy [id number] [facility] Thyroidectomy [id number] [facility] Cataract surgery<sup>1</sup> [id number] both eyes 2013 [facility] section [id number] [facility] Cholecystectomy [id number] [facility] Hysterectomy [id number] [facility] Thyroidectomy [id number] [facility]
--- OUTSIDE RECORDS SUMMARY | 2019-02-06 03:38 | XMS REPORT | Summary of Care ---
Author Author [facility] Address Unknown Phone Unavailable Encounter [facility] [id number](FIN) [id number] Date(s): 02/10/17 - 03/11/17 [facility] Discharge Disposition: Home or Self Care Attending [...]
--- OUTSIDE RECORDS SUMMARY | 2019-02-06 03:38 | XMS REPORT | Summary of Care ---
Author Author [facility] Organization [facility] Address Unknown Phone Unavailable Encounter BENJI Peña(MARY) [id number] Date(s): 08/25/17 - 08/25/17 [id number] [place] [address]- Discharge Disposition: Home or Self Care Attending Physician: Giuseppe Clemente MD Referring Physician: Giuseppe Clemente MD Vital Signs 1 2 3 Most recent to oldest [Reference Range]: 172.72 cm (08/09/17 8:07 AM) Height 121/84 mmHg (08/25/17 11:15 AM) 151/132 mmHg *HI* (08/25/17 9:15 AM) 139/100 mmHg (08/25/17 9:00 AM) Blood Pressure [90-140/60-90 mmHg] 16 BRMIN (08/25/17 11:15 AM) 13 BRMIN *LOW* (08/25/17 9:15 AM) 12 BRMIN *LOW* (08/25/17 9:00 AM) Respiratory Rate [14-20 BRMIN] 84 bpm (08/25/17 6:00 AM) Peripheral Pulse Rate [60-100 bpm] 102.727 kg (08/09/17 8:07 AM) Weight 34.43 m2 (08/09/17 8:07 AM) Body Mass Index Problem List Condition Effective Dates Status Health Status Informant DM (diabetes Active mellitus)(Confirmed) HTN Active (hypertension)(Confi rmed) Hypothyroid(Confirme Active d) Osteoarthritis(Confi Active rmed)1 1right knee Allergies, Adverse Reactions, Alerts Substance Reaction Severity Status NKDA Active Medications acetaminophen (ANES) Route: IV, Drug form: INJ, ONCE, Stop date: 08/25/17 7:29:00 PROFESSOR OF MEDICINE Start Date: 08/25/17 Stop Date: 08/25/17 Status: Completed acetaminophen-hydrocodone 325 mg-10 mg oral tablet 1 tab, Route: PO, Drug Form: TAB, Dosing Weight 102.727, kg, Q4H, PRN Pain Score 4-6, Start date: 08/25/17 6:46:00 PROFESSOR OF MEDICINE, Duration: 30 day, Stop date: 09/24/17 6: 45:00 PROFESSOR OF MEDICINE Notes: Do not exceed 4gm/day of acetaminophen. (Same as: [place] 325/10) Start Date: 08/25/17 Stop Date: 08/25/17 Status: Discontinued ANES fentaNYL 25 microgram, Route: IVP, Q5Min, Dosing Weight 102.727, kg, PRN Pain Score 4-6, Priority: Routine, Start date: 08/25/17 7:07:00 PROFESSOR OF MEDICINE, Duration: 4 doses or times, Stop date: Limited # of times Start Date: 08/25/17 Stop Date: 08/25/17 Status: Discontinued ANES flumazenil 0.2 mg, Route: IVP, PRN, Dosing Weight 102.727, kg, PRN Benzodiazepine Reversal, Initial dose, Start date: 08/25/17 7:07:00 PROFESSOR OF MEDICINE, Duration: 30 day, Stop date: 7:06:00 PROFESSOR OF MEDICINE Start Date: 08/25/17 Stop Date: 08/25/17 Status: Discontinued ANES hydrALAZINE 10 mg, Route: IVP, Q20Min, Dosing Weight 102.727, kg, PRN Elevated BP, Start ty e: 08/25/17 7:07:00 PROFESSOR OF MEDICINE, Duration: 2 doses or times, Stop date: Limited # of adrian es Start Date: 08/25/17 Stop Date: 08/25/17 Status: Discontinued ANES HYDROmorphone 0.5 mg, Route: IVP, Q5Min, Dosing Weight 102.727, kg, PRN Pain Score 7-10, Start date: 08/25/17 7:07:00 PROFESSOR OF MEDICINE, Duration: 4 doses or times, Stop date: Limited # of times Start Date: 08/25/17 Stop Date: 08/25/17 Status: Discontinued ANES metoprolol 1 mg, Route: IVP, Q5Min, Dosing Weight 102.727, kg, PRN Other -See Comment, Star t date: 08/25/17 7:07:00 PROFESSOR OF MEDICINE, Duration: 5 doses or times, Stop date: Limited # o f times Start Date: 08/25/17 Stop Date: 08/25/17 Status: Discontinued ANES naloxone 0.4 mg, Route: IVP, Q2MIN, Dosing Weight 102.727, kg, PRN Narcotic Reversal, Sta rt date: 08/25/17 7:07:00 PROFESSOR OF MEDICINE, Duration: 8 doses or times, Stop date: Limited # of times Start Date: 08/25/17 Stop Date: 08/25/17 Status: Discontinued ANES ondansetron 4 mg, Route: IVP, ONCE, Dosing Weight 102.727, kg, PRN Nausea & Vomiting, Start date: 08/25/17 7:07:00 PROFESSOR OF MEDICINE Start Date: 08/25/17 Stop Date: 08/25/17 Status: Discontinued ANES promethazine 6.25 mg, Route: IVPB, ONCE, Dosing Weight 102.727, kg, PRN Nausea & Vomiting, Start date: 08/25/17 7:07:00 PROFESSOR OF MEDICINE Start Date: 08/25/17 Stop Date: 08/25/17 Status: Discontinued aspirin 81 mg tablet, enteric coated 81 mg=1 tab, PO, Daily, # 90 tab, 3 Refill(s) Start Date: 08/09/17 Stop Date: 08/25/17 Status: Discontinued atorvastatin 20 mg oral tablet 20 mg=1 tab, PO, Daily, 0 Refill(s) Start Date: 08/09/17 Status: Ordered ceFAZolin (ANES) Route: IV, Drug form: INJ, ONCE, Stop date: 08/25/17 7:29:00 PROFESSOR OF MEDICINE Start Date: 08/25/17 Stop Date: 08/25/17 Status: Completed ceFAZolin (SCIP) 1 gm, Route: IVPB, Drug form: INJ, Q8H, Dosing Weight 102.727, kg, Start date: 10/25/16 8:00:00 PROFESSOR OF MEDICINE, Duration: 1 doses or times, Stop date: 08/25/17 8:00:00 PROFESSOR OF MEDICINE , ABX Indication: Surgical Prophylaxis Start Date: 08/25/17 Stop Date: 08/25/17 Status: Discontinued ceFAZolin + sterile water 20 mL 2 gm, Route: IV, ONCALL, Start date: 08/25/17 6:00:00 PROFESSOR OF MEDICINE, Duration: 1 doses or times, Stop date: 08/25/17 23:00:00 PROFESSOR OF MEDICINE, ABX Indication: Surgical Prophylaxis Notes: (Same As: Nehemias Orozco) MEDICATION WASTE Product Size: 1000 mgP roduct Wasted: ___ mg Start Date: 08/25/17 Stop Date: 08/25/17 Status: Discontinued CeleBREX 400 mg, 2 cap, Route: PO, Drug form: CAP, ONCALL, Start date: 08/25/17 6:00:[address], Duration: 1 doses or times, Stop date: 08/25/17 23:00:00 PROFESSOR OF MEDICINE Notes: NSAID. Please check indication. Not for seizure. (Same As: CeleBREX) Start Date: 08/25/17 Stop Date: 08/25/17 Status: Completed cloNIDine 0.1 mg oral tablet 0.1 mg, 1 tab, Route: PO, Drug form: TAB, QID, Dosing Weight 102.727, kg, PRN Hy pertension, Start date: 08/25/17 6:46:00 PROFESSOR OF MEDICINE, Duration: 30 day, Stop date: 09/24 6:45:00 PROFESSOR OF MEDICINE Notes: (Same As: Eyad) Start Date: 08/25/17 Stop Date: 08/25/17 Status: Discontinued dexamethasone 4 mg, 1 mL, Route: IV, Drug form: INJ, ONCALL, Start date: 08/25/17 6:00:00 PROFESSOR OF MEDICINE, Duration: 1 doses or times, Stop date: 08/25/17 23:00:00 PROFESSOR OF MEDICINE Notes: Concentration: 4mg/ml Start Date: 08/25/17 Stop Date: 08/25/17 Status: Completed dexamethasone (ANES) Route: IV, Drug form: INJ, ONCE, Stop date: 08/25/17 7:29:00 PROFESSOR OF MEDICINE Start Date: 08/25/17 Stop Date: 08/25/17 Status: Completed diphenhydrAMINE 12.5 mg, 5 mL, Route: PO, Drug form: LIQ, Q6H, Dosing Weight 102.727, kg, PRN It micha, Start date: 08/25/17 6:46:00 PROFESSOR OF MEDICINE, Duration: 30 day, Stop date: 09/24/17 6 :45:00 PROFESSOR OF MEDICINE Notes: (Same as: Benadryl) Start Date: 08/25/17 Stop Date: 08/25/17 Status: Discontinued ePHEDrine (ANES) Route: IV, Drug form: INJ, ONCE, Stop date: 08/25/17 8:04:00 PROFESSOR OF MEDICINE Start Date: 08/25/17 Stop Date: 08/25/17 Status: Completed famotidine (ANES) Route: IV, Drug form: INJ, ONCE, Stop date: 08/25/17 7:39:00 PROFESSOR OF MEDICINE Start Date: 08/25/17 Stop Date: 08/25/17 Status: Completed fentaNYL (ANES) Route: IV, Drug form: INJ, ONCE, Stop date: 08/25/17 7:34:00 PROFESSOR OF MEDICINE Start Date: 08/25/17 Stop Date: 08/25/17 Status: Completed folic acid 1 mg oral tablet 1 mg=1 tab, PO, Daily, 0 Refill(s) Start Date: 08/09/17 Status: Ordered hydromorphone 0.3 mg, Route: IVP, Q3H, Dosing Weight 102.727, kg, PRN Pain Score 4-6, Start da te: 08/25/17 6:46:00 PROFESSOR OF MEDICINE, Duration: 30 day, Stop date: 09/24/17 6:45:00 PROFESSOR OF MEDICINE Start Date: 08/25/17 Stop Date: 08/25/17 Status: Discontinued ketOROLAC 15 mg, Route: IVP, Q6H, Dosing Weight 102.727, kg, Start date: 08/25/17 12:00:00 PROFESSOR OF MEDICINE, Duration: 6 doses or times, Stop date: 08/26/17 18:00:00 PROFESSOR OF MEDICINE Start Date: 08/25/17 Stop Date: 08/25/17 Status: Discontinued Lactated Ringers Injection IV (ANES) 1000 mL Route: IV, Total Volume: 1,000, Start date: 08/25/17 6:30:00 PROFESSOR OF MEDICINE, Stop date: 7:30:00 PROFESSOR OF MEDICINE Start Date: 08/25/17 Stop Date: 08/25/17 Status: Completed Lactated Ringers Injection IV 1000 mL 1,000 mL, Rate: 125 ml/hr, Infuse over: 8 hr, Route: IV, Dosing Weight 102.727 k g, Total Volume: 1,000, Start date: 08/25/17 7:07:00 PROFESSOR OF MEDICINE, Duration: 30 day, Stop date: 09/24/17 7:06:00 PROFESSOR OF MEDICINE, 2.25, m2 Start Date: 08/25/17 Stop Date: 08/25/17 Status: Discontinued Lactated Ringers IV 1,000 mL 1,000 mL, Rate: 125 ml/hr, Infuse over: 8 hr, Route: IV, Dosing Weight 102.727 k g, Total Volume: 1,000, Start date: 08/25/17 6:46:00 PROFESSOR OF MEDICINE, Duration: 30 day, Stop date: 09/24/17 6:45:00 PROFESSOR OF MEDICINE, 2.25, m2 Start Date: 08/25/17 Stop Date: 08/25/17 Status: Discontinued levothyroxine 112 mcg (0.112 mg) oral tablet 112 microgram=1 tab, PO, Daily, 0 Refill(s) Start Date: 08/09/17 Status: Ordered lidocaine (ANES) Route: IV, Drug form: INJ, ONCE, Stop date: 08/25/17 7:34:00 PROFESSOR OF MEDICINE Start Date: 08/25/17 Stop Date: 08/25/17 Status: Completed losartan 50 mg oral tablet 50 mg=1 tab, PO, Daily, 0 Refill(s) Start Date: 08/09/17 Status: Ordered midazolam (ANES) Route: IV, Drug form: SOLN, ONCE, Stop date: 08/25/17 7:34:00 PROFESSOR OF MEDICINE Start Date: 08/25/17 Stop Date: 08/25/17 Status: Completed Ofirmev 1,000 mg, 100 mL, Route: IV, Drug form: INJ, ONCALL, Start date: 08/25/17 6:00:0 0 PROFESSOR OF MEDICINE, Duration: 1 doses or times, Stop date: 08/25/17 23:00:00 PROFESSOR OF MEDICINE Notes: Infuse over 15 minutesDo not exceed 4gm/day of acetaminophen MEDICAT ION WASTE Product Size: 1000 mgProduct Wasted: ___ mg Start Date: 08/25/17 Stop Date: 08/25/17 Status: Discontinued omeprazole 40 mg oral delayed release capsule 40 mg=1 cap, PO, Daily, 0 Refill(s) Start Date: 08/09/17 Status: Ordered ondansetron 4 mg, 2 mL, Route: IVP, Drug form: INJ, Q6H, Dosing Weight 102.727, kg, PRN Naus ea & Vomiting, Start date: 08/25/17 6:46:00 PROFESSOR OF MEDICINE, Duration: 30 day, Stop date: 09/24/17 6:45:00 PROFESSOR OF MEDICINE Notes: (Same as: Albin) MEDICATION WASTE Product Size: 4 mgProduct Was shaun: ___ mg Start Date: 08/25/17 Stop Date: 08/25/17 Status: Discontinued ondansetron (ANES) Route: IV, Drug form: INJ, ONCE, Stop date: 08/25/17 8:04:00 PROFESSOR OF MEDICINE Start Date: 08/25/17 Stop Date: 08/25/17 Status: Completed PARoxetine 20 mg oral tablet 20 mg=1 tab, PO, Daily, 0 Refill(s) Start Date: 08/09/17 Status: Ordered promethazine 12.5 mg, 50 mL, Route: IVPB, Drug form: SOLN, Q4H, Dosing Weight 102.727, kg, MD N Nausea & Vomiting, Start date: 08/25/17 6:46:00 PROFESSOR OF MEDICINE, Duration: 30 day, Stop date: 09/24/17 6:45:00 PROFESSOR OF MEDICINE Start Date: 08/25/17 Stop Date: 08/25/17 Status: Discontinued propofol (ANES) Route: IV, Drug form: INJ, ONCE, Stop date: 08/25/17 8:04:00 PROFESSOR OF MEDICINE Start Date: 08/25/17 Stop Date: 08/25/17 Status: Completed propofol (ANES) Route: IV, Drug form: INJ, ONCE, Stop date: 08/25/17 7:34:00 PROFESSOR OF MEDICINE Start Date: 08/25/17 Stop Date: 08/25/17 Status: Completed propofol (ANES) 10 mg Route: IV, Drug form: INJ, Start date: 08/25/17 7:47:00 PROFESSOR OF MEDICINE, Stop date: 08/25/17 8:47:00 PROFESSOR OF MEDICINE Start Date: 08/25/17 Stop Date: 08/25/17 Status: Completed scopolamine 1 patch, Route: TOP, Drug form: ERFILM, ONCALL, Start date: 08/25/17 6:00:00 PROFESSOR OF MEDICINE , Duration: 1 doses or times, Stop date: 08/25/17 23:00:00 PROFESSOR OF MEDICINE Notes: Change patch every 72 hours (Same as: Transderm-Scop) Start Date: 08/25/17 Stop Date: 08/25/17 Status: Discontinued vancomycin (SCIP) 1,000 mg, Route: IVPB, Drug form: INJ, Q12H, Dosing Weight 102.727, kg, Time Cri tical Medication, Start date: 08/25/17 9:00:00 PROFESSOR OF MEDICINE, Duration: 1 doses or times, Stop date: 08/25/17 9:00:00 PROFESSOR OF MEDICINE, Pharmacy to adjust dose for renal function, ABX Indication... Start Date: 08/25/17 Stop Date: 08/25/17 Status: Discontinued Zofran 4 mg, 1 tab, Route: PO, Drug form: TAB, ONCALL, Start date: 08/25/17 6:00:00 PROFESSOR OF MEDICINE , Duration: 1 doses or times, Stop date: 08/25/17 23:00:00 PROFESSOR OF MEDICINE Notes: (Same as: Zofran) Start Date: 08/25/17 Stop Date: 08/25/17 Status: Discontinued Zofran 4 mg, 2 mL, Route: IVP, Drug form: INJ, ONCALL, Start date: 08/25/17 6:00:00 PROFESSOR OF MEDICINE , Duration: 1 doses or times, Stop date: 08/25/17 23:00:00 PROFESSOR OF MEDICINE Notes: (Same as: Zofran) MEDICATION WASTE Product Size: 4 mgProduct Was shaun: ___ mg Start Date: 08/25/17 Stop Date: 08/25/17 Status: Completed Results BLOOD BANK RESULTS Most recent to 1 oldest [Reference Range]: ABO/Rh A POS *Unknown* (08/25/17 4:59 AM) Antibody Scrn Negative (08/25/17 4:59 AM) ELECTROLYTES Most recent to 1 oldest [Reference Range]: Sodium Lvl [135-145 143 mEq/L mEq/L] (08/09/17 8:43 AM) Potassium Lvl 4.2 mEq/L [3.5-5.1 mEq/L] (08/09/17 8:43 AM) Chloride Lvl [95-109 109 mEq/L mEq/L] (08/09/17 8:43 AM) CO2 [24-32 mEq/L] 27 mEq/L (08/09/17 8:43 AM) AGAP [10.0-20.0 11.2 mEq/L mEq/L] (08/09/17 8:43 AM) CHEM PANEL Most recent to 1 oldest [Reference Range]: Creatinine Lvl 1.20 mg/dL [0.50-1.40 mg/dL] (08/09/17 8:43 AM) eGFR 43 mL/min/1.73m2 1 *NA* (08/09/17 8:43 AM) BUN [7-22 mg/dL] 14 mg/dL (08/09/17 8:43 AM) Glucose Lvl [70-99 109 mg/dL mg/dL] *HI* (08/09/17 8:43 AM) Albumin Lvl [3.5-5.0 3.3 g/dL g/dL] *LOW* (08/09/17 8:43 AM) Calcium Lvl 8.7 mg/dL [8.5-10.5 mg/dL] (08/09/17 8:43 AM) 1Result Comment: The eGFR is calculated using the [...] from the National Kidney Disease Education Program ( NKDEP) which additionally recommends that when the eGFR is used in patients with extremes of body mass index for purposes of drug dosing, the eGFR should be mul tiplied by the estimated BMI. IMMUNOLOGY Most recent to 1 oldest [Reference Range]: HIV Ag/Ab 4th Gen Negative [Negative] *NA* (08/09/17 8:43 AM) Hep C Ab Negative *NA* (08/09/17 8:43 AM) HEMATOLOGY Most recent to 1 oldest [Reference Range]: WBC [3.7-10.4 K/CMM] 7.7 K/CMM (08/09/17 8:43 AM) RBC [4.20-5.40 4.23 M/CMM M/CMM] (08/09/17 8:43 AM) Hgb [12.0-16.0 g/dL] 13.6 g/dL (08/09/17 8:43 AM) Hct [36.0-48.0 %] 39.2 % (08/09/17 8:43 AM) MCV [80.0-98.0 fL] 92.7 fL (08/09/17 8:43 AM) MCH [27.0-31.0 pg] 32.2 pg *HI* (08/09/17 8:43 AM) MCHC [32.0-36.0 34.7 g/dL g/dL] (08/09/17 8:43 AM) RDW [11.5-14.5 %] 13.0 % (08/09/17 8:43 AM) Platelet [133-450 178 K/CMM K/CMM] (08/09/17 8:43 AM) MPV [7.4-10.4 fL] 7.8 fL (08/09/17 8:43 AM) Segs [45.0-75.0 %] 69.8 % (08/09/17 8:43 AM) Lymphocytes 18.2 % [20.0-40.0 %] *LOW* (08/09/17 8:43 AM) Monocytes [2.0-12.0 8.3 % %] (08/09/17 8:43 AM) Eosinophils [0.0-4.0 2.9 % %] (08/09/17 8:43 AM) Basophils [0.0-1.0 0.8 % %] (08/09/17 8:43 AM) Segs-Bands # 5.4 K/CMM [1.5-8.1 K/CMM] (08/09/17 8:43 AM) Lymphocytes # 1.4 K/CMM [1.0-5.5 K/CMM] (08/09/17 8:43 AM) Monocytes # [0.0-0.8 0.6 K/CMM K/CMM] (08/09/17 8:43 AM) Eosinophils # 0.2 K/CMM [0.0-0.5 K/CMM] (08/09/17 8:43 AM) Basophils # [0.0-0.2 0.1 K/CMM K/CMM] (08/09/17 8:43 AM) BACTERIAL - SEROLOGY Most recent to 1 oldest [Reference Range]: MRSA by PCR Negative (08/09/17 8:43 AM) Immunizations Given and Recorded Vaccine Date Status Refusal Reason diphtheria/pertussis, acel/tetanus adult 01/26/14 Given Procedures Procedure Date Related Diagnosis Body Site Cataract surgery1 section Cholecystectomy Hysterectomy Thyroidectomy 1both eyes 2014 Social History Social History Type Response Smoking Status Never smoker; Exposure to Tobacco Smoke None; Cigarette Smoking Last 365 Days No; Reg Smoking Cessation Counseling No Assessment and Plan Extracted from: Title: Clinical Document Author: Sandra Grier PA-C Date: 08/24/17 Patient name: MANAS VANEGAS : 1940 History and Physical Chief Complaint: Right knee pain History of Present Illness: 76 year old female with persistent right knee pain due to osteoarthritis. The pain significantly interferes with the patient's ability to perform activities of daily living. The patient has failed an exhaustive course of conservative therapy and desires surgical intervention. Past Medical History: Allergies: NKDA Surgery: cholecystectomy, hysterectomy Medical illness: 1. osteoarthritis 2. hypertension 3. thyroid disease 4. GERD 5. history of DVT/PE 6. obesity Medications: levothyroxine, folate, aspirin, atorvastatin, omeprazole, paroxitine, losartan Habits: Smoking: none EtOH: Other: Vital Signs: Ht: in Wt: lb BMI: 35 Review Of Systems: Nervous Endocrine Skin: denies rash and infection Cardiovascular: denies chest pain Hematology/Coagulation: denies bleeding abnormalities Urinary: Genital Metabolic Musculoskeletal: right knee pain, restrcited range of motion GI / Alimentary Respiratory: denies shortness of breath Infection: denies fever and chills Physical Exam: General: Alert and oriented. No acute distress. Gait: antalgic gait and limp HEENT: Normocephalic and atraumatic. No mass or deformity. Cardiovascular: Regular rate and rhythm, no murmur or gallop. Lungs: Clear to auscultation bilaterally Abdomen: Extremities: right knee exam reveals varus alignment with isolated tenderness over the medial joint line. Range of motion is 5-115 degrees. Pain and crepitus is produced with motion. Neurological: Intact Problems: 1. Right knee pain 2. Right knee osteoarthritis Treatment Plan: Right partial knee replacement Post operative medications: celebrex, norco, aspirin
--- OUTSIDE RECORDS SUMMARY | 2019-02-06 03:39 | XMS REPORT | Summary of Care ---
Author Author [facility] Address Unknown Phone Unavailable Encounter [facility] [place]_mat(FIN) [id number] Date(s): 11/01/17 - 11/30/17 [facility] Encounter Diagnosis Other abnormalities of gait and mobility (Final) - Pain in right knee (Final) - 12/05/17 Stiffness of right knee, not elsewhere classified (Final) - Weakness (Final) - Other abnormalities of gait and [...]
--- OUTSIDE RECORDS SUMMARY | 2019-02-06 03:39 | XMS REPORT | Summary of Care ---
Author Author [facility] Address Unknown Phone Unavailable Encounter [facility] [place]_[facility](FIN) [id number] Date(s): 12/01/17 - 12/30/17 [facility] Encounter Diagnosis Pain in right knee (Final) - 01/07/18 Stiffness of right knee, not elsewhere classified (Final) - Weakness (Final) - Unsteadiness on feet (Final) - Other abnormalities of gait and mobility (Final) - Discharge Disposition: Home or Self [...]
--- OUTSIDE RECORDS SUMMARY | 2019-02-06 03:39 | XMS REPORT | Summary of Care ---
Author Author [facility] Address Unknown Phone Unavailable Encounter [facility] Encntr_alirodrigo(FIN) [id number] Date(s): 05/12/16 - 06/10/16 [facility] Final: Muscle weakness (generalized) Final: Stiffness of unspecified knee, not elsewhere classified Final: Difficulty in walking, [...]
--- OUTSIDE RECORDS SUMMARY | 2019-02-06 03:39 | XMS REPORT | Summary of Care ---
Author Author [facility] Address Unknown Phone Unavailable Encounter [facility] Encn[facility]_alirodrigo(FIN) [id number] Date(s): 06/22/16 - 07/21/16 [facility] Discharge Disposition: Home or Self Care [...]
[2019-02-06] MEDS ORDERED: ACETAMIN/BUTALBITAL/CAFFEINE TAB PO ONE (04:00)
[2019-02-06] MEDS ORDERED: FIORINAL 50-321 EACH PO (04:44)
[2019-02-06 05:05] VITALS: BP 125/80
== END 2019-02-06 05:32 | disposition home or self-care (01) ==
LOC: ER 03:34
DX: G43.109 Migraine with aura, not intractable, without status migrainosus (principal); G44.89 Other headache syndrome
CPT/HCPCS: 99283

== ENCOUNTER → 2019-02-14 | Outpatient (CLI) | payer MEDICARE, OTHER ==
[~2019-02-14] MED LIST changes: +FIORINAL 50-321 EACH PO; +IOPAMIDOL 370 MG/ML 200 ML INFUS..BTL INJ ONE; +SODIUM CHLORIDE 0.9% 250ML 250 ML ONE; +SODIUM CHLORIDE 0.9% 500ML 500 ML ONE; +SODIUM CHLORIDE 0.9% 50ML 50 ML ONE
--- NOTE | 2019-02-14 12:58 | Diagnostic Imaging Report ---
ADDENDUM #1 Addendum: Multiple attempts were made to contact the referring physician Dr. Ana Ross at [phone] in order to verbally communicate the finding of pulmonary embolus, ultimately without success. The patient states that the anticoagulant agent Eliquis is among her current medications on a scanned document provided to the radiology department on arrival for the examination. Signed by: Dr. Daniel Sullivan M.D. on 02/14/2019 1:34 PM ADDENDUM #2 Addendum: Findings were communicated by telephone with Dr. Ana Ross at 1:40 PM 02/14/2019. Signed by: Dr. Daniel Sullivan M.D. on 02/14/2019 1:44 PM ORIGINAL REPORT EXAMINATION: CT of the chest with contrast, PE protocol. TECHNIQUE: Spiral CT images of the chest were performed from the lung apices through the level of the adrenal glands after the IV administration of 100 cc Isovue-370. Thin section reconstructions were obtained with special concentration on the pulmonary arteries. COMPARISON: 07/10/2017 CLINICAL HISTORY:Pulmonary embolism DISCUSSION: Vasculature: Filling defects within the left upper lobe anterior segmental branch pulmonary artery (series 2 image 36 and 37), as well as the superior lingular branch pulmonary artery (series 2 image 45) the main pulmonary artery and proximal right and left pulmonary arteries are otherwise patent. The pulmonary outflow tract is of normal caliber. No right ventricular dilatation or intraventricular septal bowing. There is no ectasia or aneurysmal dilatation of the thoracic aorta. Great vessel origins are of normal caliber and configuration. Lungs: Scattered groundglass opacity intermixed with areas of hyperlucency, presumably related to air trapping. Smooth interlobular septal thickening. Atelectatic changes of the medial segments of the bilateral lower lobes. Calcified left lower lobe granuloma. Airways: Trachea, mainstem bronchi, and central lobar and segmental bronchi are patent. Pleura: <There is no evidence of pleural effusion or pneumothorax.> Heart and mediastinum: Visualized thyroid gland appears normal. Mild enlargement of the cardiac silhouette without pericardial effusion. Large sliding hiatal hernia is unchanged. No axillary, hilar, or mediastinal lymphadenopathy. Abdomen: Visualized portions of the liver, spleen, pancreas, and adrenals are unremarkable. Diverticula projecting from the partially visualized descending colon. Bones and soft tissues: No osseous destructive lesions. Degenerative disc changes of the lower cervical and thoracic spine. No focal soft tissue abnormalities. IMPRESSION: Left upper lobe apical and superior lingular segmental pulmonary emboli without CT findings of right heart strain. Groundglass opacities and smooth interlobular septal thickening compatible with interstitial pulmonary edema. Large sliding hiatal hernia. Signed by: Dr. Daniel Sullivan M.D. on 02/14/2019 12:55 PM
== END ==
LOC: CT 10:46
DX: I82.402 Acute embolism and thrombosis of unspecified deep veins of left lower extremity (principal); I26.99 Other pulmonary embolism without acute cor pulmonale; I10 Essential (primary) hypertension; E03.9 Hypothyroidism, unspecified; K44.9 Diaphragmatic hernia without obstruction or gangrene
CPT/HCPCS: 71260; J7040; J7050; Q9967

== ENCOUNTER 2019-12-24 11:43 | Emergency (ER) | payer MEDICARE, OTHER ==
[~2019-12-24] VITALS: Ht 167.6 cm; Wt 102.1 kg
[~2019-12-24 11:43] MED LIST changes: -IOPAMIDOL 370 MG/ML 200 ML INFUS..BTL INJ ONE; -SODIUM CHLORIDE 0.9% 250ML 250 ML ONE; -SODIUM CHLORIDE 0.9% 500ML 500 ML ONE; -SODIUM CHLORIDE 0.9% 50ML 50 ML ONE
--- NOTE | 2019-12-24 12:07 | NUR ---
ems emt stated pt could not walk or stand. pt states she is able and has since fall. pt stood off ems stretcher walked to er stretcher, sat down and picked up her own legs under her own strength without any difficulty or requiring assistance. pt aaox4. ambulatory.
--- NOTE | 2019-12-24 13:27 | Diagnostic Imaging Report ---
SHOULDER RIGHT COMPLETE, HUMERUS RIGHT 2+VIEWS - 3 views HISTORY: Pain. COMPARISON: None available. FINDINGS: Bones: Acute minimally displaced fracture through the greater tuberosity of the humeral head. The surgical neck is intact. The distal humerus and visualized elbow joint are intact. Joints: Advanced degenerative changes of the acromioclavicular joint. Mild glenohumeral arthrosis. Soft tissues: The soft tissues appear unremarkable. IMPRESSION: Acute minimally displaced fracture of the humeral head greater tuberosity. Signed by: Gilmer Barnes MD on 12/24/2019 1:23 PM
--- NOTE | 2019-12-24 13:29 | Diagnostic Imaging Report ---
Bilateral knees - 2 view(s) each HISTORY: Pain. COMPARISON: None available. FINDINGS: No acute fracture or dislocation. Mild tricompartmental degenerative change of the left knee. Right knee medial compartment hemiarthroplasty change. Moderate lateral and patellofemoral degenerative change. No discrete joint effusion. Multiple varicose veins bilaterally IMPRESSION: No acute radiographic abnormality of either knee. Signed by: Gilmer Barnes MD on 12/24/2019 1:26 PM
== END 2019-12-24 14:40 | disposition home or self-care (01) ==
LOC: ER 11:43
DX: S42.251A Displaced fracture of greater tuberosity of right humerus, initial encounter for closed fracture (principal); S80.212A Abrasion, left knee, initial encounter; S80.211A Abrasion, right knee, initial encounter; W01.0XXA Fall on same level from slipping, tripping and stumbling without subsequent striking against object, initial encounter; Y93.01 Activity, walking, marching and hiking; Y92.008 Other place in unspecified non-institutional (private) residence as the place of occurrence of the external cause; I10 Essential (primary) hypertension; E03.9 Hypothyroidism, unspecified; F32.9 Major depressive disorder, single episode, unspecified; Z86.711 Personal history of pulmonary embolism
CPT/HCPCS: 99284

== ENCOUNTER 2020-10-30 04:51 | Inpatient (IN) | payer MEDICARE, OTHER ==
[~2020-10-30] VITALS: Ht 167.6 cm; Wt 102.1 kg
[2020-10-30] MEDS ORDERED: DEXAMETHASONE SOD PHOS 10 MG/1 ML VIAL IV STA (05:16)
[2020-10-30] MEDS ORDERED: AZITHROMYCIN 500MG/NS 250 ML 250 ML IV STA (05:16)
[2020-10-30 05:26] LABS: BASOPHILS % 0.2 % (0.0-1.0); EOSINOPHILS % 0.2 % (0.0-6.0); HEMATOCRIT 42.8 % (34.2-44.1); HEMOGLOBIN 15.1 g/dL (12.0-16.0); LYMPHOCYTES # (AUTO) 0.7 (1.0-3.2); LYMPHOCYTES % 16.9 % (18.0-39.1); MEAN CORPUSCULAR HEMOGLOBIN 31.9 pg (28-32); MEAN CORPUSCULAR HGB CONC 35.3 g/dL (31-35); MEAN CORPUSCULAR VOLUME 90.5 fL (81-99); MONOCYTES # (AUTO) 0.4 (0.2-0.8); MONOCYTES % 9.1 % (4.4-11.3); NEUTROPHILS % 73.4 % (38.7-80.0); PLATELET COUNT 163 x10e3/uL (140-360); RED BLOOD COUNT 4.73 x10e6/uL (3.6-5.1); RED CELL DISTRIBUTION WIDTH 12.4 % (11.7-14.4)
[2020-10-30] MEDS ORDERED: ASPIRIN 81 MG CHEW TAB PO ONE (05:30)
[2020-10-30 06:40] LABS: ALANINE AMINOTRANSFERASE 24 IU/L (0-55); ALBUMIN 3.3 g/dL (3.5-5.0); ALBUMIN/GLOBULIN RATIO 0.9 (0.8-2.0); ALKALINE PHOSPHATASE 83 IU/L (40-150); ANION GAP 14.1 mmol/L (8-16); BLOOD UREA NITROGEN 9 mg/dL (7-26); BUN/CREATININE RATIO 10 (6-25); CALCIUM 8.6 mg/dL (8.4-10.2); CARBON DIOXIDE 26 mmol/L (22-29); CHLORIDE 98 mmol/L (98-107); CREATINE KINASE 43 IU/L (29-168); CREATININE, SERUM 0.86 mg/dL (0.57-1.11); EST GLOMERULAR FILTRATION RATE > 60 ML/MIN (60-); GLUCOSE 131 mg/dL (74-118); POTASSIUM 4.1 mmol/L (3.5-5.1); SODIUM 134 mmol/L (136-145)
[2020-10-30 14:55] LABS: CREATINE KINASE MB 0.8 ng/mL (0-5.0)
[2020-10-30 16:00] VITALS: BP 143/80
[2020-10-30] MEDS ORDERED: VITAMIN B122500 MCG IM (16:51)
[2020-10-30] MEDS ORDERED: ELIQUIS5 MG PO (16:51)
[2020-10-30] MEDS ORDERED: METOPROLOL SUCC50 MG PO (16:51)
[2020-10-30 17:47] VITALS: BP 143/80
[2020-10-30 17:55] VITALS: BP 143/80
[2020-10-30] MEDS ORDERED: CYANOCOBALAMIN 1000 MG IM SCH (19:45)
[2020-10-30] MEDS ORDERED: ACETAMINOPHEN 325 MG TAB PO PRN (19:45)
[2020-10-30 20:00] VITALS: BP 136/87
[2020-10-30] MEDS: ATORVASTATIN 20 MG TAB PO SCH (20:47)
[2020-10-30 20:57] VITALS: BP 136/87
[2020-10-31] VITALS (8 sets, daily range): BP systolic 120–157; BP diastolic 75–95
[2020-10-31] MEDS: LEVOTHYROXINE SODIUM 100 MCG TAB PO SCH (05:33)
[2020-10-31 06:09] LABS: BASOPHILS % 0.2 % (0.0-1.0); HEMATOCRIT 41.8 % (34.2-44.1); HEMOGLOBIN 14.3 g/dL (12.0-16.0); LYMPHOCYTES # (AUTO) 0.7 (1.0-3.2); LYMPHOCYTES % 16.7 % (18.0-39.1); MEAN CORPUSCULAR HEMOGLOBIN 31.6 pg (28-32); MEAN CORPUSCULAR HGB CONC 34.2 g/dL (31-35); MEAN CORPUSCULAR VOLUME 92.3 fL (81-99); MONOCYTES # (AUTO) 0.4 (0.2-0.8); MONOCYTES % 8.5 % (4.4-11.3); NEUTROPHILS # (AUTO) 3.2 (2.1-6.9); NEUTROPHILS % 74.1 % (38.7-80.0); PLATELET COUNT 155 x10e3/uL (140-360); RED BLOOD COUNT 4.53 x10e6/uL (3.6-5.1); RED CELL DISTRIBUTION WIDTH 12.2 % (11.7-14.4)
[2020-10-31 06:37] LABS: CALCIUM 8.5 mg/dL (8.4-10.2); POTASSIUM 4.2 mmol/L (3.5-5.1)
[2020-10-31 07:14] LABS: ALBUMIN 3.1 g/dL (3.5-5.0); ALBUMIN/GLOBULIN RATIO 0.8 (0.8-2.0); ANION GAP 18.2 mmol/L (8-16); CREATININE, SERUM 0.94 mg/dL (0.57-1.11)
[2020-10-31] MEDS: APIXABAN 5 MG TABLET PO SCH ×2 (08:41→16:20)
[2020-10-31] MEDS: OYST-CAL-D 500MG TABLET PO SCH ×2 (08:41→16:20)
[2020-10-31] MEDS: PANTOPRAZOLE SOD 40 MG TABEC PO SCH (08:41)
[2020-10-31] MEDS: METOPROLOL SUCCINATE 50 MG TAB XL PO SCH (08:42)
[2020-10-31] MEDS ORDERED: AZITHROMYCIN 500MG/NS 250 ML 250 ML IV SCH (15:00)
[2020-10-31] MEDS: DEXAMETHASONE SOD PHOS INJ 4 MG/ML VIAL IV SCH (16:20)
[2020-10-31] MEDS: FAMOTIDINE 20 MG TAB PO SCH (16:20)
[2020-10-31] MEDS: ATORVASTATIN 20 MG TAB PO SCH (20:18)
[2020-11-01] VITALS: BP 130/65
[2020-11-01 04:00] VITALS: BP 126/65
[2020-11-01 05:28] LABS: HEMATOCRIT 40.7 % (34.2-44.1); HEMOGLOBIN 13.9 g/dL (12.0-16.0); LYMPHOCYTES # (AUTO) 0.7 (1.0-3.2); LYMPHOCYTES % 13.3 % (18.0-39.1); MEAN CORPUSCULAR HGB CONC 34.2 g/dL (31-35); MEAN CORPUSCULAR VOLUME 93.8 fL (81-99); MONOCYTES # (AUTO) 0.4 (0.2-0.8); MONOCYTES % 7.1 % (4.4-11.3); NEUTROPHILS # (AUTO) 4.1 (2.1-6.9); NEUTROPHILS % 79.2 % (38.7-80.0); PLATELET COUNT 187 x10e3/uL (140-360); RED BLOOD COUNT 4.34 x10e6/uL (3.6-5.1)
[2020-11-01 05:44] LABS: ANION GAP 13.6 mmol/L (8-16); CALCIUM 8.6 mg/dL (8.4-10.2); CREATININE, SERUM 0.92 mg/dL (0.57-1.11); POTASSIUM 4.6 mmol/L (3.5-5.1)
[2020-11-01] MEDS: LEVOTHYROXINE SODIUM 100 MCG TAB PO SCH (06:04)
[2020-11-01 07:34] VITALS: BP 126/65
[2020-11-01 08:00] VITALS: BP 136/83
[2020-11-01] MEDS: PANTOPRAZOLE SOD 40 MG TABEC PO SCH (08:22)
[2020-11-01] MEDS: FAMOTIDINE 20 MG TAB PO SCH (08:22)
[2020-11-01] MEDS: OYST-CAL-D 500MG TABLET PO SCH (08:23)
[2020-11-01] MEDS: APIXABAN 5 MG TABLET PO SCH (08:23)
[2020-11-01] MEDS: DEXAMETHASONE SOD PHOS INJ 4 MG/ML VIAL IV SCH (08:23)
[2020-11-01] MEDS ORDERED: ZINC SULFATE 220 MG CAP PO SCH (09:00)
[2020-11-01] MEDS ORDERED: ASCORBIC ACID 500 MG TAB PO SCH (09:00)
[2020-11-01] MEDS: METOPROLOL SUCCINATE 50 MG TAB XL PO SCH (09:56)
[2020-11-01 12:00] VITALS: BP 125/80
[2020-11-02] MEDS ORDERED: PYRIDOXINE HCL 50 MG TAB PO SCH (09:00)
[2020-11-21] MEDS ORDERED: CYANOCOBALAMIN INJ 1,000 MCG/ML VIAL IM SCH (09:00)
== END 2020-11-01 15:58 | disposition home or self-care (01) | DRG 177 ==
LOC: ER 05:02 → ERHOLD 06:25 → IMCU 16:03
PROC: 8E0ZXY6 Isolation (ICD-10-PCS; principal; 2020-10-30)
DX: U07.1 COVID-19 (principal); J12.82 Pneumonia due to coronavirus disease 2019; I10 Essential (primary) hypertension; F32.9 Major depressive disorder, single episode, unspecified; E03.9 Hypothyroidism, unspecified; R09.02 Hypoxemia
CPT/HCPCS: 36415; 71045; 80048; 80053; 82550; 82553; 83605; 83880; 84484; 85025; 87040; 93005; 99284; J0456; J1100; U0002

== ENCOUNTER 2020-11-06 12:38 | Emergency (ER) | payer MEDICARE, OTHER ==
[~2020-11-06] VITALS: Ht 167.6 cm; Wt 102.1 kg
[~2020-11-06 12:38] MED LIST changes: +ELIQUIS5 MG PO; +METOPROLOL SUCC50 MG PO; +VITAMIN B122500 MCG IM
== END 2020-11-06 13:03 | disposition home or self-care (01) ==
LOC: ER 12:55
DX: U07.1 COVID-19 (principal); R53.83 Other fatigue; I10 Essential (primary) hypertension; E03.9 Hypothyroidism, unspecified; F32.9 Major depressive disorder, single episode, unspecified; Z86.711 Personal history of pulmonary embolism
CPT/HCPCS: 99282

== ENCOUNTER → 2020-12-24 | Outpatient (CLI) | payer MEDICARE, OTHER | LOC: MRI 10:25 | DX: M54.16 Radiculopathy, lumbar region (principal) | CPT/HCPCS: 72148 ==

== ENCOUNTER → 2021-01-20 | Outpatient (CLI) | payer MEDICARE, OTHER ==
[2021-01-16 15:52] LABS: BASOPHILS % 0.7 % (0.0-1.0); EOSINOPHILS # (AUTO) 0.1 (0.0-0.4); EOSINOPHILS % 1.4 % (0.0-6.0); HEMATOCRIT 42.2 % (34.2-44.1); HEMOGLOBIN 14.1 g/dL (12.0-16.0); LYMPHOCYTES # (AUTO) 1.3 (1.0-3.2); LYMPHOCYTES % 23.2 % (18.0-39.1); MEAN CORPUSCULAR HGB CONC 33.4 g/dL (31-35); MEAN CORPUSCULAR VOLUME 95.9 fL (81-99); MONOCYTES # (AUTO) 0.6 (0.2-0.8); MONOCYTES % 10.1 % (4.4-11.3); NEUTROPHILS # (AUTO) 3.6 (2.1-6.9); NEUTROPHILS % 64.2 % (38.7-80.0); PLATELET COUNT 200 x10e3/uL (140-360); RED CELL DISTRIBUTION WIDTH 13.1 % (11.7-14.4)
[~2021-01-20] MED LIST changes: +FOLIC ACID PO; +LACTATED RINGER'S 1,000 ML ONE; +LIDOCAINE HCL 1% LOCAL INJ 20 ML VIAL ONE; +PAROXETINE HCL20 MG PO
[2021-01-20 10:35] LABS: INR 0.92
[2021-01-20 10:36] LABS: PARTIAL THROMBOPLASTIN TIME 25.8 seconds (23.8-35.5)
== END ==
LOC: DX 09:52
PROVIDERS: ATTEND Radiology Vascular & Interventional Radiology
DX: S22.080A Wedge compression fracture of T11-T12 vertebra, initial encounter for closed fracture (principal); M54.16 Radiculopathy, lumbar region; Z20.822 Contact with and (suspected) exposure to COVID-19
CPT/HCPCS: 36415 ×2; 71046; 85025; 85610; 85730; J2001; J7121; U0002; 22513

== ENCOUNTER → 2021-05-25 | Day surgery (SDC) | payer MEDICARE, OTHER ==
[2021-05-22 10:37] LABS: BASOPHILS % 0.5 % (0.0-1.0); EOSINOPHILS # (AUTO) 0.1 (0.0-0.4); EOSINOPHILS % 1.8 % (0.0-6.0); HEMOGLOBIN 14.8 g/dL (12.0-16.0); LYMPHOCYTES # (AUTO) 1.3 (1.0-3.2); LYMPHOCYTES % 22.9 % (18.0-39.1); MEAN CORPUSCULAR HEMOGLOBIN 31.2 pg (28-32); MEAN CORPUSCULAR HGB CONC 32.9 g/dL (31-35); MEAN CORPUSCULAR VOLUME 94.9 fL (81-99); MONOCYTES # (AUTO) 0.5 (0.2-0.8); MONOCYTES % 9.4 % (4.4-11.3); NEUTROPHILS # (AUTO) 3.6 (2.1-6.9); PLATELET COUNT 217 x10e3/uL (140-360); RED BLOOD COUNT 4.74 x10e6/uL (3.6-5.1); RED CELL DISTRIBUTION WIDTH 12.2 % (11.7-14.4)
[~2021-05-25] MED LIST changes: +CALCIUM600 MG PO; +FENTANYL CITRATE/PF 100MCG/2 ML INJ ONE; +FOLIC ACID0.4 MG PO; -LACTATED RINGER'S 1,000 ML ONE; +LEVOTHYROXINE25 MCG PEG; -LIDOCAINE HCL 1% LOCAL INJ 20 ML VIAL ONE; +METOPROLOL PO
[2021-05-25 15:40] VITALS: BP 147/79
== END | disposition home or self-care (01) ==
LOC: OR 11:57
PROVIDERS: ATTEND Internal Medicine Gastroenterology
DX: K20.90 Esophagitis, unspecified without bleeding (principal); K31.7 Polyp of stomach and duodenum; K29.70 Gastritis, unspecified, without bleeding; K21.9 Gastro-esophageal reflux disease without esophagitis; Z86.010 Personal history of colon polyps; I10 Essential (primary) hypertension; E03.9 Hypothyroidism, unspecified; E78.5 Hyperlipidemia, unspecified; R00.1 Bradycardia, unspecified; F32.9 Major depressive disorder, single episode, unspecified; Z01.812 Encounter for preprocedural laboratory examination; Z20.822 Contact with and (suspected) exposure to COVID-19; Z79.82 Long term (current) use of aspirin; Z79.02 Long term (current) use of antithrombotics/antiplatelets; Z68.34 Body mass index [BMI] 34.0-34.9, adult; Z86.16 Personal history of COVID-19; Z98.61 Coronary angioplasty status
CPT/HCPCS: 36415; 43239; 43450; 85025; 88305; 88312; J3010; U0002

== ENCOUNTER → 2021-05-27 | Outpatient (CLI) | payer MEDICARE, OTHER ==
[~2021-05-27] MED LIST changes: -FENTANYL CITRATE/PF 100MCG/2 ML INJ ONE; +IOPAMIDOL 370 MG/ML 200 ML INFUS..BTL INJ ONE; +SODIUM CHLORIDE 0.9% 500ML 500 ML ONE; +SODIUM CHLORIDE 0.9% 50ML 50 ML ONE
== END ==
LOC: CT 07:14
PROVIDERS: ATTEND Internal Medicine Gastroenterology
DX: R10.30 Lower abdominal pain, unspecified (principal); R13.19 Other dysphagia
CPT/HCPCS: 74177; 96360; J7040; Q9967

== ENCOUNTER 2022-04-07 20:51 | Emergency (ER) | payer MEDICARE, OTHER ==
[~2022-04-07] VITALS: Ht 167.6 cm; Wt 94.3 kg
[~2022-04-07 20:51] MED LIST changes: -IOPAMIDOL 370 MG/ML 200 ML INFUS..BTL INJ ONE; -SODIUM CHLORIDE 0.9% 500ML 500 ML ONE; -SODIUM CHLORIDE 0.9% 50ML 50 ML ONE
[2022-04-07] MEDS ORDERED: METOPROLOL SUCCINATE 50 MG TAB XL PO ONE (22:15)
[2022-04-07] MEDS ORDERED: DIPHENHYDRAMINE HCL INJ 50 MG/ML VIAL IV STA (23:20)
[2022-04-07] MEDS ORDERED: METOCLOPRAMIDE HCL 10 MG/2ML VIAL IV ONE (23:30)
[2022-04-07] MEDS ORDERED: ACETAMINOPHEN 325 MG TAB PO ONE (23:30)
[2022-04-08 00:48] VITALS: BP 153/78
== END 2022-04-08 00:59 | disposition home or self-care (01) ==
LOC: ER 21:48
DX: R51.9 Headache, unspecified (principal); S00.83XD Contusion of other part of head, subsequent encounter; W18.39XD Other fall on same level, subsequent encounter; I10 Essential (primary) hypertension; E03.9 Hypothyroidism, unspecified; F32.A Depression, unspecified; Z86.711 Personal history of pulmonary embolism
CPT/HCPCS: 70450; 93005; 99284; J1200; J2765

== ENCOUNTER 2022-08-06 09:30 | Inpatient (IN) | payer MEDICARE, OTHER ==
[~2022-08-06] VITALS: Ht 167.6 cm; Wt 94.3 kg
[2022-08-06 10:09] LABS: BASOPHILS # (AUTO) 0.1 (0.0-0.1); BASOPHILS % 0.8 % (0.0-1.0); EOSINOPHILS # (AUTO) 0.3 (0.0-0.4); EOSINOPHILS % 4.9 % (0.0-6.0); HEMATOCRIT 45.1 % (34.2-44.1); HEMOGLOBIN 14.9 g/dL (12.0-16.0); LYMPHOCYTES # (AUTO) 0.9 (1.0-3.2); LYMPHOCYTES % 15.1 % (18.0-39.1); MEAN CORPUSCULAR HEMOGLOBIN 31.6 pg (28-32); MEAN CORPUSCULAR VOLUME 95.6 fL (81-99); MONOCYTES # (AUTO) 0.6 (0.2-0.8); MONOCYTES % 9.1 % (4.4-11.3); NEUTROPHILS # (AUTO) 4.3 (2.1-6.9); NEUTROPHILS % 69.8 % (38.7-80.0); PLATELET COUNT 185 x10e3/uL (140-360); RED BLOOD COUNT 4.72 x10e6/uL (3.6-5.1); RED CELL DISTRIBUTION WIDTH 12.6 % (11.7-14.4)
[2022-08-06 10:21] LABS: INR 0.87; PROTHROMBIN TIME 12.7 seconds (11.9-14.5)
[2022-08-06 10:22] LABS: PARTIAL THROMBOPLASTIN TIME 27.2 seconds (23.8-35.5)
[2022-08-06 10:31] LABS: ALBUMIN 3.4 g/dL (3.5-5.0); ALBUMIN/GLOBULIN RATIO 0.9 (0.8-2.0); ANION GAP 15.3 mmol/L (8-16); CALCIUM 9.7 mg/dL (8.4-10.2); CREATININE, SERUM 1.06 mg/dL (0.57-1.11); POTASSIUM 4.3 mmol/L (3.5-5.1)
[2022-08-06 10:39] LABS: CREATINE KINASE MB 1.3 ng/mL (0-5.0)
[2022-08-06] MEDS ORDERED: SODIUM CHLORIDE 0.9% 500ML 500 ML IV ONE (10:45)
[2022-08-06] MEDS ORDERED: IOPAMIDOL 370 MG/ML 100 ML INFUS..BTL INJ ONE (11:18)
[2022-08-06] MEDS ORDERED: ENOXAPARIN SODIUM INJ 100 MG/ML SYR SC SCH (13:30)
[2022-08-06 13:39] VITALS: BP 154/83
[2022-08-06 14:54] LABS: CHOL/HDL RATIO 3.7 (3.0-3.6)
[2022-08-06 15:13] LABS: THYROID STIMULATING HORMONE 1.211 uIU/mL (0.350-4.940)
[2022-08-06] MEDS ORDERED: ECOTRIN81 MG PO (16:28)
[2022-08-06] MEDS ORDERED: VITAMIN B INJ (16:28)
[2022-08-06] MEDS ORDERED: LISINOPRIL2.5 MG PO (16:28)
[2022-08-06 16:30] VITALS: BP 163/97
[2022-08-06] MEDS ORDERED: MINERALS PO SCH (17:00)
[2022-08-06] MEDS ORDERED: VIT D3 PO SCH (17:00)
[2022-08-06] MEDS ORDERED: NON-FORMULARY MEDICATION (Calcium Carbonate (Calcium) 600 MG) PO SCH (17:00)
[2022-08-06] MEDS ORDERED: CALCIUM CARB PO SCH (17:00)
[2022-08-06] MEDS ORDERED: APIXABAN 5 MG TABLET PO SCH ×2 (17:00)
[2022-08-06] MEDS: APIXABAN 5 MG TABLET PO SCH (17:27)
[2022-08-06] MEDS: PANTOPRAZOLE SOD 40 MG TABEC PO SCH (17:27)
[2022-08-06] MEDS: OYST-CAL-D 500MG TABLET PO SCH (17:27)
[2022-08-06 20:00] VITALS: BP 157/89
[2022-08-06] MEDS ORDERED: ATORVASTATIN 20 MG TAB PO SCH ×2 (21:00)
[2022-08-06] MEDS: METOPROLOL SUCCINATE 50 MG TAB XL PO SCH (21:20)
[2022-08-06] MEDS: ATORVASTATIN 20 MG TAB PO SCH (21:22)
[2022-08-07] MEDS ORDERED: SODIUM CHLORIDE 0.9% 250ML 250 ML ONE (04:11)
[2022-08-07 05:33] LABS: BASOPHILS % 0.7 % (0.0-1.0); EOSINOPHILS # (AUTO) 0.3 (0.0-0.4); EOSINOPHILS % 5.7 % (0.0-6.0); HEMATOCRIT 39.1 % (34.2-44.1); HEMOGLOBIN 13.7 g/dL (12.0-16.0); MEAN CORPUSCULAR HEMOGLOBIN 31.9 pg (28-32); MEAN CORPUSCULAR VOLUME 90.9 fL (81-99); MONOCYTES # (AUTO) 0.5 (0.2-0.8); MONOCYTES % 8.7 % (4.4-11.3); NEUTROPHILS # (AUTO) 3.7 (2.1-6.9); NEUTROPHILS % 66.5 % (38.7-80.0); PLATELET COUNT 154 x10e3/uL (140-360); RED CELL DISTRIBUTION WIDTH 12.6 % (11.7-14.4)
[2022-08-07] MEDS: LEVOTHYROXINE SODIUM 100 MCG TAB PO SCH (05:34)
[2022-08-07 06:02] LABS: ALBUMIN 2.9 g/dL (3.5-5.0); ALBUMIN/GLOBULIN RATIO 0.9 (0.8-2.0); ANION GAP 14.1 mmol/L (8-16); CALCIUM 9.8 mg/dL (8.4-10.2); CREATININE, SERUM 0.9 mg/dL (0.57-1.11); POTASSIUM 4.1 mmol/L (3.5-5.1)
[2022-08-07 06:08] LABS: CREATINE KINASE MB 2.9 ng/mL (0-5.0)
[2022-08-07] MEDS: PANTOPRAZOLE SOD 40 MG TABEC PO SCH ×2 (07:41→16:45)
[2022-08-07] MEDS: ACETAMINOPHEN 325 MG TAB PO PRN ×2 (07:42→16:46)
[2022-08-07 07:56] VITALS: BP 157/96
[2022-08-07 08:04] VITALS: BP 157/96
[2022-08-07] MEDS: METOPROLOL SUCCINATE 50 MG TAB XL PO SCH ×2 (08:48→21:00)
[2022-08-07] MEDS: APIXABAN 5 MG TABLET PO SCH ×2 (08:48→16:45)
[2022-08-07] MEDS: FOLIC ACID 1 MG TAB PO SCH (08:48)
[2022-08-07] MEDS: OYST-CAL-D 500MG TABLET PO SCH ×2 (08:49→16:45)
[2022-08-07] MEDS: PAROXETINE HCL 20 MG TAB PO SCH (08:49)
[2022-08-07] MEDS: PYRIDOXINE HCL 50 MG TAB PO SCH (09:00)
[2022-08-07] MEDS ORDERED: NON-FORMULARY MEDICATION (Folic Acid* 1 MG) PO SCH (09:00)
[2022-08-07] MEDS ORDERED: NON-FORMULARY MEDICATION ([Metoprolol] 50 MG) PO SCH (09:00)
[2022-08-07] MEDS ORDERED: PAROXETINE HCL 20 MG TAB PO SCH (09:00)
[2022-08-07] MEDS ORDERED: LEVOTHYROXINE SODIUM 112 MCG TAB PO SCH (09:00)
[2022-08-07] MEDS ORDERED: PYRIDOXINE HCL 50 MG TAB PO SCH (09:00)
[2022-08-07] MEDS ORDERED: PANTOPRAZOLE SOD 40 MG TABEC PO SCH (09:00)
[2022-08-07] MEDS ORDERED: NON-FORMULARY MEDICATION ([Folic Acid] 1 MG) PO SCH (09:00)
[2022-08-07] MEDS ORDERED: MAGNESIUM SULF 1GRAM/DEXTROSE 100 ML IV ONE (09:30)
[2022-08-07] MEDS ORDERED: METOPROLOL TARTRATE INJ 1 MG/ML VIAL IV PRN (09:45)
[2022-08-07] MEDS ORDERED: ONDANSETRON HCL INJ 2MG/ML 2ML 2 MG/ML VIAL IV PRN (09:45)
[2022-08-07 11:26] VITALS: BP 155/81
[2022-08-07] MEDS ORDERED: MAGNESIUM SULFATE 2GM/50ML 50 ML IV ONE (11:30)
[2022-08-07] MEDS: LISINOPRIL 2.5 MG TAB PO SCH (12:01)
[2022-08-07 15:04] LABS: CREATINE KINASE MB 2.9 ng/mL (0-5.0)
[2022-08-07 15:06] VITALS: BP 158/74
[2022-08-07] MEDS ORDERED: ACETAMIN/BUTALBITAL/CAFFEINE TAB PO PRN (18:45)
[2022-08-07 21:10] VITALS: BP 148/83
[2022-08-07 21:20] VITALS: BP 148/83
[2022-08-07] MEDS: ATORVASTATIN 20 MG TAB PO SCH (21:20)
[2022-08-07] MEDS ORDERED: AMLODIPINE BESYLATE 10 MG TAB PO ONE (21:45)
[2022-08-08] VITALS (8 sets, daily range): BP systolic 108–156; BP diastolic 63–78
[2022-08-08 05:44] LABS: BASOPHILS % 0.7 % (0.0-1.0); EOSINOPHILS # (AUTO) 0.4 (0.0-0.4); EOSINOPHILS % 6.5 % (0.0-6.0); HEMATOCRIT 40.2 % (34.2-44.1); HEMOGLOBIN 14.2 g/dL (12.0-16.0); LYMPHOCYTES % 17.1 % (18.0-39.1); MEAN CORPUSCULAR HEMOGLOBIN 31.6 pg (28-32); MEAN CORPUSCULAR HGB CONC 35.3 g/dL (31-35); MEAN CORPUSCULAR VOLUME 89.5 fL (81-99); MONOCYTES # (AUTO) 0.5 (0.2-0.8); MONOCYTES % 8.7 % (4.4-11.3); NEUTROPHILS # (AUTO) 3.9 (2.1-6.9); NEUTROPHILS % 66.3 % (38.7-80.0); PLATELET COUNT 193 x10e3/uL (140-360); RED BLOOD COUNT 4.49 x10e6/uL (3.6-5.1); RED CELL DISTRIBUTION WIDTH 12.3 % (11.7-14.4)
[2022-08-08] MEDS: LEVOTHYROXINE SODIUM 100 MCG TAB PO SCH (06:01)
[2022-08-08 06:10] LABS: CALCIUM 9.3 mg/dL (8.4-10.2); CREATININE, SERUM 0.85 mg/dL (0.57-1.11); MAGNESIUM 1.7 MG/DL (1.3-2.1); PHOSPHORUS 3.9 MG/DL (2.3-4.7)
[2022-08-08] MEDS: APIXABAN 5 MG TABLET PO SCH ×2 (08:12→17:19)
[2022-08-08] MEDS: AMLODIPINE BESYLATE 10 MG TAB PO SCH (08:12)
[2022-08-08] MEDS: FOLIC ACID 1 MG TAB PO SCH (08:12)
[2022-08-08] MEDS: PANTOPRAZOLE SOD 40 MG TABEC PO SCH ×2 (08:12→17:19)
[2022-08-08] MEDS: OYST-CAL-D 500MG TABLET PO SCH ×2 (08:13→17:19)
[2022-08-08] MEDS: PAROXETINE HCL 20 MG TAB PO SCH (08:13)
[2022-08-08] MEDS: METOPROLOL SUCCINATE 50 MG TAB XL PO SCH ×2 (08:14→21:00)
[2022-08-08] MEDS: LISINOPRIL 2.5 MG TAB PO SCH (08:14)
[2022-08-08] MEDS: PYRIDOXINE HCL 50 MG TAB PO SCH (08:14)
[2022-08-08] MEDS ORDERED: MAGNESIUM SULF 1GRAM/DEXTROSE 100 ML IV ONE (08:30)
[2022-08-08] MEDS: ATORVASTATIN 20 MG TAB PO SCH (21:00)
[2022-08-09] VITALS: BP 123/56
[2022-08-09 04:00] VITALS: BP 103/53
[2022-08-09] MEDS: LEVOTHYROXINE SODIUM 100 MCG TAB PO SCH (05:36)
[2022-08-09 05:37] LABS: BASOPHILS % 0.6 % (0.0-1.0); EOSINOPHILS # (AUTO) 0.3 (0.0-0.4); EOSINOPHILS % 6.3 % (0.0-6.0); HEMATOCRIT 41.2 % (34.2-44.1); HEMOGLOBIN 13.8 g/dL (12.0-16.0); LYMPHOCYTES # (AUTO) 0.9 (1.0-3.2); LYMPHOCYTES % 17.3 % (18.0-39.1); MEAN CORPUSCULAR HEMOGLOBIN 31.9 pg (28-32); MEAN CORPUSCULAR HGB CONC 33.5 g/dL (31-35); MEAN CORPUSCULAR VOLUME 95.2 fL (81-99); MONOCYTES # (AUTO) 0.6 (0.2-0.8); MONOCYTES % 11.2 % (4.4-11.3); NEUTROPHILS # (AUTO) 3.5 (2.1-6.9); PLATELET COUNT 206 x10e3/uL (140-360); RED BLOOD COUNT 4.33 x10e6/uL (3.6-5.1); RED CELL DISTRIBUTION WIDTH 12.1 % (11.7-14.4)
[2022-08-09 05:58] LABS: ANION GAP 14.3 mmol/L (8-16); CALCIUM 9.5 mg/dL (8.4-10.2); CREATININE, SERUM 0.97 mg/dL (0.57-1.11); MAGNESIUM 1.8 MG/DL (1.3-2.1); POTASSIUM 4.3 mmol/L (3.5-5.1)
[2022-08-09 08:03] VITALS: BP 112/62
[2022-08-09 08:14] VITALS: BP 112/62
[2022-08-09] MEDS: OYST-CAL-D 500MG TABLET PO SCH ×2 (09:09→17:06)
[2022-08-09] MEDS: PANTOPRAZOLE SOD 40 MG TABEC PO SCH ×2 (09:09→17:06)
[2022-08-09] MEDS: AMLODIPINE BESYLATE 10 MG TAB PO SCH (09:09)
[2022-08-09] MEDS: FOLIC ACID 1 MG TAB PO SCH (09:09)
[2022-08-09] MEDS: APIXABAN 5 MG TABLET PO SCH ×2 (09:09→17:06)
[2022-08-09] MEDS: METOPROLOL SUCCINATE 50 MG TAB XL PO SCH (09:10)
[2022-08-09] MEDS: LISINOPRIL 2.5 MG TAB PO SCH (09:10)
[2022-08-09] MEDS: PAROXETINE HCL 20 MG TAB PO SCH (09:10)
[2022-08-09] MEDS: PYRIDOXINE HCL 50 MG TAB PO SCH (09:11)
[2022-08-09] MEDS ORDERED: ONDANSETRON HCL 4 MG ORAL DISINTEGRATING TAB PO PRN (09:30)
[2022-08-09 11:48] VITALS: BP 113/64
[2022-08-09 16:34] VITALS: BP 102/60
[2022-08-14] MEDS ORDERED: APIXABAN 5 MG TABLET PO SCH (09:00)
== END 2022-08-09 17:50 | disposition home or self-care (01) | DRG 314 ==
LOC: ER 09:48 → ERHOLD 11:27 → MED/SURG 13:54
DX: I27.24 Chronic thromboembolic pulmonary hypertension (principal); I26.94 Multiple subsegmental thrombotic pulmonary emboli without acute cor pulmonale; I26.99 Other pulmonary embolism without acute cor pulmonale; E83.42 Hypomagnesemia; F32.9 Major depressive disorder, single episode, unspecified; E78.5 Hyperlipidemia, unspecified; I25.10 Atherosclerotic heart disease of native coronary artery without angina pectoris; Z86.16 Personal history of COVID-19; E03.9 Hypothyroidism, unspecified; Z20.822 Contact with and (suspected) exposure to COVID-19; Z79.82 Long term (current) use of aspirin; Z79.899 Other long term (current) drug therapy; Z86.718 Personal history of other venous thrombosis and embolism; Z79.01 Long term (current) use of anticoagulants
CPT/HCPCS: 36415; 71045; 71260; 80048; 80053; 80061; 82550; 82553; 83735; 83880; 84100; 84443; 84484; 85025; 85610; 85730; 87400; 93005; 93970; 94799; 99284; J1650; J2405; J3475; J7040; J7050; Q9967

== ENCOUNTER 2022-08-17 19:34 | Emergency (ER) | payer MEDICARE, OTHER ==
[~2022-08-17] VITALS: Ht 167.6 cm; Wt 94.3 kg
[~2022-08-17 19:34] MED LIST changes: +LISINOPRIL2.5 MG PO; +VITAMIN B INJ
[2022-08-17 20:09] LABS: BASOPHILS % 0.6 % (0.0-1.0); EOSINOPHILS # (AUTO) 0.2 (0.0-0.4); EOSINOPHILS % 3.2 % (0.0-6.0); HEMATOCRIT 46.6 % (34.2-44.1); HEMOGLOBIN 15.1 g/dL (12.0-16.0); LYMPHOCYTES # (AUTO) 1.4 (1.0-3.2); LYMPHOCYTES % 20.8 % (18.0-39.1); MEAN CORPUSCULAR HEMOGLOBIN 31.9 pg (28-32); MEAN CORPUSCULAR HGB CONC 32.4 g/dL (31-35); MEAN CORPUSCULAR VOLUME 98.5 fL (81-99); MONOCYTES # (AUTO) 0.6 (0.2-0.8); MONOCYTES % 8.7 % (4.4-11.3); NEUTROPHILS # (AUTO) 4.6 (2.1-6.9); NEUTROPHILS % 66.4 % (38.7-80.0); PLATELET COUNT 302 x10e3/uL (140-360); RED BLOOD COUNT 4.73 x10e6/uL (3.6-5.1); RED CELL DISTRIBUTION WIDTH 12.8 % (11.7-14.4)
[2022-08-17 20:31] LABS: ALBUMIN 3.9 g/dL (3.5-5.0); ALBUMIN/GLOBULIN RATIO 1.1 (0.8-2.0); CALCIUM 9.9 mg/dL (8.4-10.2); CREATININE, SERUM 1.4 mg/dL (0.57-1.11)
[2022-08-17 20:38] LABS: CREATINE KINASE MB 1.2 ng/mL (0-5.0)
[2022-08-17] MEDS ORDERED: IOPAMIDOL 370 MG/ML 100 ML INFUS..BTL INJ ONE (20:59)
[2022-08-17 23:12] VITALS: BP 141/82
== END 2022-08-17 23:03 | disposition home or self-care (01) ==
LOC: ER 19:41
DX: R07.89 Other chest pain (principal); F41.9 Anxiety disorder, unspecified; I10 Essential (primary) hypertension; E03.9 Hypothyroidism, unspecified; F32.A Depression, unspecified; Z86.711 Personal history of pulmonary embolism
CPT/HCPCS: 36415; 71260; 80053; 82550; 82553; 83880; 84484; 85025; 85379; 93005; 99284; Q9967

== ENCOUNTER → 2022-10-11 | Outpatient (CLI) | payer MEDICARE, OTHER | LOC: US 13:11 | DX: R22.1 Localized swelling, mass and lump, neck (principal) | CPT/HCPCS: 76536 ==